=== PATIENT | female | born 1950 | race Caucasian/White ===

== ENCOUNTER 2025-02-22 18:50 | Emergency (ER) | payer MEDICARE, SELFPAY ==
--- OUTSIDE RECORDS SUMMARY | 2003-07-17 01:00 | XMS_ITS | Encounter Summary ---
Author Organization [facility] Address [address] [facility] [address] [place] [address] Phone Care Team Providers Care Blind Cleaner Name Role Phone Unavailable Primary Care Provider Unavailabl e Encounter Details Date Type Department Care Team (Late st Contact Info) Description 07/17/2003 Hospital Encounter [facility],Outside Imaging [address] [place], [place] [id number] System, Provider [place] In, [place] [address] Social History Tobacco Use Types Packs/Day Years Used Date Smoking Tobacco: Former Cigarettes 1 8 0 05/15/1980 - 05/15/1988 Smokeless Tobacco: Never Alcohol Use Standard Drinks/Week Comments Yes 0 (1 standard drink = 0.6 oz pure alcohol) Alcohol on holidays; otherwise, don't drink Child or Family Care Answer Date Record ed Do you have problems with on e of the following making it difficult for you to work, study, or receive health care? No 08/31/2020 Education Answer Date Recorded Are you interested in more education? Not on angela e 09/09/2022 Are you concerned about learning? Not on file 09/09/2022 No 09/09/2022 No 09/09/2022 Food Answer Date Recorded Within the past 6 months we worried whether our food would run out before we got money to buy more. Never True 02/12/2025 Within the past 6 months the food we bought just didn't last and we didn't have enough money to get more. Never True Residential Stability Answer Date Recor ded What is your housing situation today? I have nick barroso 02/12/2025 How many times have you move d in the past 12 months? Zero (I did not move) 02/12/2025 Paying for Meds Answer Date Recorded Do you have trouble paying for medicines? No 02/12/2025 Paying Utility Bills Answer Date Record ed Do you have trouble paying your heating or elect ricity bill? No 02/12/2025 Transportation Answer Date Recorded Has the lack of transportati on kept you from medical appointments or from getting medications? No 02/12/2025 Digital Access Answer Date Recorded No 02/12/2025 Yes 02/12/2025 Do you have reliable internet access at home? Ye s 02/12/2025 Do you have a device (e.g., phone, tablet, computer) with a working camera? Yes 02/12/2025 Intimate Partner Violence Answer Date R ecorded Are you denied basic needs s uch as food, clothing, or medical care? No 02/12/2025 In the past 12 months have y ou been in a relationship with a person who hurts, threatens, or tries to control you? No 02/12/2025 Are you denied basic needs s uch as food, clothing, or medical care? No 02/12/2025 In the past 12 months have y ou been in a relationship with a person who hurts, threatens, or tries to control you? No 02/12/2025 Comments No Sex and Gender Information Value Date Recorded Sex Assigned at Female 10/29/2017 1:31 PM EDT Legal Sex Female 10:04 PM EDT Gender Identity Female 10/29/2017 1:31 PM EDT Sexual Orientation Straight 10/09/2019 7: 46 AM EDT documented as of this encounter Functional Status * Calculated C-SSRS Risk Score (Lifetime/Recent) Answer Date of Assessment Author No Risk Indicated 02/12/2025 10:18 PM EDT Gigi Craven RN * [place] Suicide Severity Rating Scale (Screener/Recent Self-Report) Question Answer Date of Assessment Author 1. Wish to be (Past 1 Month) No 02/12/2025 10:18 PM DELFINT Gigi Sanchez RN 2. Non-Specific Active Suicidal Thoughts (Past 1 Month) No 02/12/2025 10:18 PM EDT Gigi Sanchez, LEONORA 6. Suicidal Behavior (Lifetime) No 02/12/2025 10:18 PM EDT Gigi Sanchez RN documented as of this encounter Plan of Treatment Upcoming Encounters Date Type Department Care Team (Late st Contact Info) Description 02/23/2025 Home Care Visit [facility] [address] [place] [address] Donya Matos RN [address] [place] [address] [email or web address] 03/03/2025 4:00 PM EDT Office Visit [facility] [address] [place] [address] Maya Frias MD [address] [facility], [address] [place] [address] [email or web address] documented as of this encounter Procedures Procedure Name Priority Date/Time Associated Diagnosis Comments BI MAMMOGRAM OUTSIDE (NO INTERPRETATION) Routine 07/17/2003 12:00 AM EST documented in this encounter Results * Mammogram Outside (No Interpretation) (07/17/2003 12:00 AM EST) Narrative SYSTEMGENERATED, DOCUMENTATION - 08/07/2018 1:35 PM EDT This study is for PACS storage only and not for interpretation. 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 It is not the complete legal health record.[facility]
--- OUTSIDE RECORDS SUMMARY | 2004-09-01 | XMS_ITS | Encounter Summary ---
Author Organization [facility] Address [address] [facility] [address] [place] [address] Phone Care Team Providers Care Auth Specialist Name Role Phone Unavailable Primary Care Provider Unavailabl e Encounter Details Date Type Department Care Team (Late st Contact Info) Description 09/01/2004 Hospital Encounter [facility],Outside Imaging [address] [place], [place] [phone] System, Provider [place] In, [place] [address] Social History Tobacco Use Types Packs/Day Years [...] 10:18 PM EDT Gigi Craven RN * [place] Suicide Severity Rating Scale (Screener/Recent Self-Report) Question [...] Visit [facility] [address] [place] [address] Donya Matos RN [address] [place] [address] [email or web address] 03/03/2025 4:00 PM EDT Office Visit [facility] [address] [place] [address] Maya Frias MD [address] [facility], [address] [place] [address] [email or web address] documented as of this encounter Procedures Procedure Name Priority Date/Time Associated Diagnosis Comments BI MAMMOGRAM OUTSIDE (NO INTERPRETATION) Routine 09/01/2004 12:00 AM EDT documented in this encounter Results * Mammogram Outside (No Interpretation) (09/01/2004 12:00 AM EDT) Narrative SYSTEMGENERATED, DOCUMENTATION - 08/07/2018 1:34 PM EDT This study is for PACS [...] It is not the complete legal health record.[facility]
--- OUTSIDE RECORDS SUMMARY | 2005-11-30 | XMS_ITS | Encounter Summary ---
Author Organization [facility] Address [address] [facility] [address] [place] [address] Phone Care Team Providers Care High [employer] Auto Repair Teacher Name Role Phone Unavailable Primary Care Provider Unavailabl e Encounter Details Date Type Department Care Team (Late st Contact Info) Description 11/30/2005 Hospital Encounter [facility],Outside Imaging [address] [place], [place] [phone] System, Provider [place] In, [place] [address] Social History Tobacco Use Types Packs/Day Years [...] 10:18 PM EDT Gigi Craven RN * [place] Suicide Severity Rating Scale (Screener/Recent Self-Report) Question [...] Visit [facility] [address] [place] [address] Donya Matos RN [address] [place] [address] [email or web address] 03/03/2025 4:00 PM EDT Office Visit [facility] [address] [place] [address] Maya Frias MD [address] [facility], [address] [place] [address] [email or web address] documented as of this encounter Procedures Procedure Name Priority Date/Time Associated Diagnosis Comments BI MAMMOGRAM OUTSIDE (NO INTERPRETATION) Routine 11/30/2005 12:00 AM EDT documented in this encounter Results * Mammogram Outside (No Interpretation) (11/30/2005 12:00 AM EDT) Narrative SYSTEMGENERATED, DOCUMENTATION - 08/07/2018 1:33 PM EDT This study is for PACS [...] It is not the complete legal health record.[facility]
--- OUTSIDE RECORDS SUMMARY | 2008-07-23 | XMS_ITS | Encounter Summary ---
Author Organization [facility] Address [address] [facility] [address] [place] [address] Phone Care Team Providers Care Poising Inspector Name Role Phone Unavailable Primary Care Provider Unavailabl e Encounter Details Date Type Department Care Team (Late st Contact Info) Description 07/23/2008 Hospital Encounter [facility],Outside Imaging [address] [place], [place] [phone] System, Provider [place] In, [place] [address] Social History Tobacco Use Types Packs/Day Years [...] 10:18 PM EDT Gigi Craven RN * [place] Suicide Severity Rating Scale (Screener/Recent Self-Report) Question [...] Visit [facility] [address] [place] [address] Donya Matos RN [address] [place] [address] [email or web address] 03/03/2025 4:00 PM EDT Office Visit [facility] Medical [facility] [address] [place] [address] Maya Frias MD [address] [facility], [address] [place] [address] [email or web address] documented as of this encounter Procedures Procedure Name Priority Date/Time Associated Diagnosis Comments BI MAMMOGRAM OUTSIDE (NO INTERPRETATION) Routine 07/23/2008 12:00 AM EDT documented in this encounter Results * Mammogram Outside (No Interpretation) (07/23/2008 12:00 AM EDT) Narrative SYSTEMGENERATED, DOCUMENTATION - 08/07/2018 1:32 PM EDT This study is for PACS [...] It is not the complete legal health record.[facility]
--- OUTSIDE RECORDS SUMMARY | 2010-08-12 | XMS_ITS | Encounter Summary ---
Author Organization [facility] Address [address] [facility] [facility] [address] [place] [address] Phone Care Team Providers Care Spooling Operator Name Role Phone Unavailable Primary Care Provider Unavailabl e Encounter Details Date Type Department Care Team (Late st Contact Info) Description 08/12/2010 Hospital Encounter [facility],Outside Imaging [address] [place], [place] [phone] System, Provider [place] In, [place] [address] Social History Tobacco Use Types Packs/Day Years [...] 10:18 PM EDT Gigi Craven RN * [place] Suicide Severity Rating Scale (Screener/Recent Self-Report) Question [...] Visit [facility] [address] [place] [address] Donya Matos RN [address] [place] [address] [email or web address] 03/03/2025 4:00 PM EDT Office Visit [facility] Medical [facility] [address] [place] [address] Maya Frias MD [address] [facility], [address] [place] [address] [email or web address] documented as of this encounter Procedures Procedure Name Priority Date/Time Associated Diagnosis Comments BI MAMMOGRAM OUTSIDE (NO INTERPRETATION) Routine 08/12/2010 12:00 AM EDT documented in this encounter Results * Mammogram Outside (No Interpretation) (08/12/2010 12:00 AM EDT) Narrative SYSTEMGENERATED, DOCUMENTATION - 08/07/2018 1:31 PM EDT This study is for PACS [...] It is not the complete legal health record.[facility]
--- NOTE | ~2025-02-22 | CT_ITS ---
CLINICAL HISTORY: fall with head strike CT cervical spine without contrast Comparison: None provided Findings: Straightening of the normal cervical lordosis. Multilevel degenerative endplate changes of the cervical spine. There is at least mild spinal stenosis at C5-6. No high-grade spinal stenosis. No acute fractures or dislocations. No acute findings on limited view of the intracranial contents. No cervical fluid collections or masses. Lung apices are clear. IMPRESSION: No acute traumatic abnormality in the cervical spine. This document has been electronically signed by: Bridget Mario MD on 02/22/2025 20:28:12
--- NOTE | ~2025-02-22 | CT_ITS ---
CLINICAL HISTORY: fall head strike CT head without contrast Comparison: None provided Findings: BRAIN: No acute infarct, hemorrhage, or mass effect. Scattered periventricular/deep white matter hypodensities, nonspecific, however may represent chronic microvascular ischemic disease. CSF SPACES: No hydrocephalus or effacement of basal cisterns. SKULL: No calvarial fracture. SINUSES: Moderate right and mild left maxillary sinus mucosal thickening. ORBITS: Limited views are unremarkable. OTHER: Negative. IMPRESSION: 1. No acute intracranial findings. This document has been electronically signed by: Bridget Mario MD on 02/22/2025 20:29:47
--- OUTSIDE RECORDS SUMMARY | 2025-02-22 09:30 | XMS_ITS | Encounter Summary ---
Author Organization [facility] Address [address] [facility] [address] [place] [address] Phone Care Team Providers Care Balance Staff Staker Name Role Phone Nicole Birch SOFTWARE PACKAGER Unavailable [phone] Mesha Drake MD Unavailable [phone] Tesfaye Putnam MD Unavailable [phone] Maya Frias MD Primary Care Provider [phone] Reason for Visit * Auth/Cert (Routine) Specialty Diagnoses / Procedures Referred By Contac t Referred To Contact Referral ID Status Reason Start Date Expiration Date Visits Re quested Visits Authorized [id number] 1 1 Encounter Details Date Type Department Care Team (Late st Contact Info) Description 02/22/2025 9:30 AM EDT Home Care Visit [facility] [address] [place] [address] Griffin Young, PT [address] [place] [address] PT OASIS START OF CARE (SOC) Social History Tobacco Use Types Packs/Day Years [...] your housing situation today? I have nick sing 02/12/2025 How many times have you move [...] AM EDT documented as of this encounter Last Filed Vital Signs Vital Sign Reading Time Taken Comments Blood Pressure 122/64 02/22/2025 10:31 AM EDT Pulse 88 02/22/2025 10:31 AM EDT Temperature 36.6 C (97.9 F) 02/22/2025 10:31 AM EDT Respiratory Rate 18 02/22/2025 10:31 AM EDT Oxygen Saturation 98% 02/22/2025 10:31 AM EDT Inhaled Oxygen Concentration - - Weight - - Height - - Body Mass Index - - documented in this encounter Plan of Treatment Upcoming Encounters Date Type Department Care Team (Late st Contact Info) Description 02/23/2025 Home Care Visit [facility] [address] [place] [address] Donya Matos, LEONORA [address] [place] [address] [email or web address] 03/03/2025 4:00 PM EDT Office Visit [facility] [address] [place] [address] Maya Frias MD [address] [facility], [address] [place] [address] [email or web address] documented as of this encounter Visit Diagnoses Not on filedocumented in this encounter Additional Health Concerns Infection Onset Date Last Indicated Resolved Time 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 02/13/2025 Assessment Noted Time PHQ-2 Depression Total Score: 0 09/02/19 25 8:43 PM EDT documented as of this encounter Home Health Visit - Care Plan Visit Details Visit Type -PT OASIS START O F CARE (SOC) Discipline -Physical Therapy Problems Problem Description Start Date Status Goals Interve ntions HH - Medication Management Disciplines: All Active Home Health Disciplines 02/22/2025 Active 1 goal linked to scheduled/document ed intervention 2 goal interventions scheduled/document ed in this visit HH - Focus of Care and Teaching Disciplines: All Active Home Health Disciplines w/RD 02/22/2025 Active 1 goal linked to scheduled/document ed intervention 1 goal intervention scheduled/document ed in this visit HH - Emergency Planning - Knowledge of Disciplines: All Active Home Health Disciplines 02/22/2025 Active 1 goal linked to scheduled/document ed intervention 2 goal interventions scheduled/document ed in this visit HH - Standard of Care Disciplines: All Active Home Health Disciplines 02/22/2025 Active 1 goal linked to scheduled/document ed intervention 2 goal interventions scheduled/document ed in this visit Goals Goal Associated Problem Outcome Goal Met? Visit Notes HH - Safe medication management, avoid unnecessary harm related to medication errors and/or interactions HH - Medication Management No HH - Communication and collaboration to achieve patient goals HH - Focus of Care and Teaching No HH - Knowledge of options for managing care in the event of an emergency related situation. HH - Emergency Planning - Knowledge of No HH - Achieve care management for a safe to home/community discharge from homecare HH - Standard of Care No Interventions Intervention Associated Problem/Goal Status Variance Visit Notes - I/E medication management: administration, purpose, dosages, preparation, setup, scheduling, side effects, food/drug interactions, and potential complications as indicated Description: Update patient's copy of medication list as needed. Problem: - Medication Management Goal: - Safe medication management, avoid unnecessary harm related to medication errors and/or interactions Scheduled - Complete medication review every visit and medication reconciliation as indicated. Pharmacy information: Problem: - Medication Management Goal: - Safe medication management, avoid unnecessary harm related to medication errors and/or interactions Scheduled - Focus of care, teaching completed and plan for next visit Problem: - Focus of Care and Teaching Goal: - Communication and collaboration to achieve patient goals Scheduled - I/E management of care in an urgent or emergency (ER) situation: When to call your Home Care Team/911, ER plans, supplies, evacuation, when to contact local ER officials and how to stay informed Problem: - Emergency Planning - Knowledge of Goal:HH - Knowledge of options for managing care in the event of an emergency related situation. Scheduled - Emergency planning assessment: the emergency plan, supplies needed, emergency contact numbers and an evacuation plan were reviewed Description: Patient is/are knowledgeable of emergency plans. Problem: - Emergency Planning - Knowledge of Goal:HH - Knowledge of options for managing care in the event of an emergency related situation. Scheduled - Assess vital signs, pulse oximetry, pain, and as indicated, orthostatic vital signs Problem:HH - Standard of Care Goal:HH - Achieve care management for a safe to home/community discharge from homecare Scheduled HH - Assess skin integrity Problem:HH - Standard of Care Goal:HH - Achieve care management for a safe to home/community discharge from homecare Scheduled documented in this encounter Care Teams Balance Staff Staker Relationship Specialty Start Date End Date Maya Frias MD [address] [facility], [address] [place] [address] [email or web address] PCP - General Family Medicine 05/03/21 Nicole Birch FNP [address] [facility], [address] [place] [address] Historical LMR Provider 03/01/17 Mesha Drake MD [address] [place] [address], [address] [place] [address] Historical LMR Provider 03/01/17 Tesfaye Putnam MD [address] [place] [address] [address] [place] [address] [email or web address] Historical LMR Provider 03/01/17 documented as of this encounter Additional Source Comments The information contained in this document represents components of the legal health record. It is not the complete legal health record.[facility]
[2025-02-22 18:54] VITALS: BP 138/72; BP 142/59; PULSE 64; PULSE 94; RESP 16; TEMP 36.8; O2SAT 99; BMI 29.4
--- NOTE | 2025-02-22 19:27 | PC.NURSE ---
[place] witnessed mechanical fall. PT arrived AOx4 GCS of 15 in a C-collar and EMS reported that pt tripped in the mall with no symptoms prior to fall, pt did have a +head strike, -LOC, +thinners (eliquis), and present with abrasion and mackenzie-orbital edema on right eye. PT is asymptomatic and denies any pain. +CMS in all extremities and +PERRLA. A-fib on tele pertinent PMH.
--- NOTE | 2025-02-22 19:40 | ED_ITS ---
HPI - General Adult General Chief complaint: Fall Stated complaint: Wit fall, +head strike, -loc,+thinners/c-collar Time Seen by Provider: 02/22/25 19:40 Source: patient and EMS Mode of arrival: EMS Limitations: no limitations History of Present Illness ED Provider: Meron Virk PA-C HPI narrative: Patient is a 74 year old assigned female at with a history of atrial fib on eliquis presenting to the emergency department today after a mechanical fall. Patient states that she tripped on the escalator and hit her head on the ground. Patient denies any loss of consciousness with the incident. Patient denies any other complaints at this time. Related Data Allergies Allergy/AdvReac Type Severity Reaction Status Date / Time No Known Allergies Allergy Verified 02/22/25 19:08 Review of Systems 2 Constitutional: Constitutional: Reports as per HPI Eyes: Eyes: Reports as per HPI ENT: Reports as per HPI Cardiovascular: Cardiovascular: Reports as per HPI Respiratory: Respiratory: Reports as per HPI Gastrointestinal: Gastrointestinal: Reports as per HPI Genitourinary: Genitourinary: Reports as per HPI Musculoskeletal: Musculoskeletal: Reports as per HPI Integumentary/Breasts: Skin/Breast: Reports as per HPI Neurologic: Reports as per HPI Psychiatric: Psychiatric: Reports as per HPI Endocrine: Endocrine: Reports as per HPI Hematologic/Lymphatic: Hematologic/Lymphatic: Reports as per HPI Allergic/Immunologic: Allergic/Immunologic: Reports as per HPI PMFSH Past Medical History Attestation statement: The following information was validated with the patient. Source: old records reviewed and nursing notes reviewed Social History Social History Alcohol intake: current Alcohol intake frequency: holidays/special occasions only Alcohol type: wine Smoked in Last 30 Days: No Use of substances other than those prescribed or required for medical reasons: No Any prior treatment program specific to substance use: No Advance Directives: No Advance Directives Information Provided: Yes Physical Exam ED Vital Signs: Vital Signs - 24 hr 02/22/25 18:54 02/22/25 20:04 02/22/25 21:44 Temperature 98.2 F 97.5 F 97.5 F Pulse Rate 94 91 91 Respiratory Rate 16 12 12 Blood Pressure 142/59 H 146/58 H 146/58 H Pulse Oximetry 99 98 98 Oxygen Delivery Method Room Air Room Air Room Air BMI result Body Mass Index 29.4 Const General: cooperative, no acute distress, alert and awake Nutritional Appearance: well nourished Orientation/consciousness: patient oriented x3 HENMT Other: Ears: hearing grossly normal bilaterally and external ears normal General nose exam: Normal external nose present, no nasal discharge noted and no epistaxis Mouth: Normal oral and palatal mucosa present, no drooling and no muffled voice Eyes General: appearance normal, both eyes and all related structures Periorbital: periorbital findings normal Eyelids: Yes eyelids normal Conjunctivae: conjunctivae normal Pupils: Equal, round and reactive pupils present EOM: EOMs intact bilaterally Neck Neck: Yes normal visual inspection and Yes full ROM Resp Effort & Inspection: normal respiratory effort and able to speak in complete sentences Neuro General: patient oriented x3, moves all extremities and CN's II-XI intact bilaterally Cranial nerves: Yes Equal, round and reactive pupils present Cognition (Neuro): normal cognition Extrem General: Yes normal to inspection, Yes full ROM and Yes capillary refill normal Psych Appearance: grossly normal Mental Status: mental status grossly normal Affect: normal affect Attitude: cooperative Thought process: Normal thought process present Thought content: Normal thought content present Insight: Good insight present (Psych) Medications Administered Discontinued Medications Generic Name Dose Route Start Last Admin Trade Name Freq PRN Reason Stop Dose Admin Diphtheria/Tetanus/Acell Pertussis 0.5 ml 02/22/25 21:16 02/22/25 21:29 Diphth,Pertus(Acell),Tet Adult 0.5 Ml Syringe IM 02/22/25 21:17 0.5 ml .ONCE ONE Administration Lidocaine HCl 5 ml 02/22/25 20:33 02/22/25 20:51 Lidocaine Hcl 1 % Mpf 5 Ml Vial SUBCUT 02/22/25 20:34 5 ml ONCE ONE Administration Procedures Laceration R forehead: Site: face Side (If applicable): right Size (cm): 1.5 Description: irregular Depth: simple, single layer Local Anesthetic: lidocaine 1% Amount of anesthesia used (mL): 5 Pre-repair: wound explored, irrigated extensively and deep structures intact Skin layer closed with: other (prolene) Size (cm): 6-0 Number of sutures: 3 Technique: simple, interrupted Medical Decision Making Medical Decision Making MDM Narrative: Patient is a 74 year old assigned female at with a history of atrial fib on eliquis presenting to the emergency department today after a mechanical fall. Patient's physical exam was as noted in the physical exam portion of this note. Patient's CT head and c-spine showed no acute process. I explained my physical exam findings as well as all test results to the patient. I answered all questions asked by the patient. Patient was brought up to date on her tetanus status. Patient's laceration was repaired, per procedure note, without incident. I stressed the importance of the patient taking her medication as directed (either prescribed or as the over the counter packaging recommends). I stressed the importance of the patient following up with her primary care provider. I stressed the importance of the patient returning to the emergency department immediately if her symptoms were to worsen or if she were to develop any dizziness, shortness of breath, difficulty breathing, chest pain, blurry vision, loss of vision, nausea, vomiting, abdominal pain, fever, chills, back pain, or any other complaints. Patient verbalized agreement and understanding with this treatment plan and discharge. Differential Diagnosis Differential Diagnoses: The differential diagnosis associated with the presentation includes Laceration Mechanical fall Admission/Observation Consideration of admission/observation: Escalation of care including admission/observation considered Patient would have been admitted to the hospital had her work up had any findings where hospital admission was appropriate and her clinical presentation warranted hospital admission. Independent Interpretation I performed an independent interpretation of an: CT Scan Interpretation: My interpretation is in agreement with the radiologist's impression of these imaging studies. L Report Number: [id number] Reason for Exam: fall head strike CLINICAL HISTORY: fall head strike CT head without contrast Comparison: None provided Findings: BRAIN: No acute infarct, hemorrhage, or mass effect. Scattered periventricular/deep white matter hypodensities, nonspecific, however may represent chronic microvascular ischemic disease. CSF SPACES: No hydrocephalus or effacement of basal cisterns. SKULL: No calvarial fracture. SINUSES: Moderate right and mild left maxillary sinus mucosal thickening. ORBITS: Limited views are unremarkable. OTHER: Negative. IMPRESSION: 1. No acute intracranial findings. This document has been electronically signed by: Bridget Mario MD on 02/22/2025 20:29:47 Dictated By: Bridget Mario MD Signed By: Electronically signed by Bridget Mario MD 02/22/252029 Report Number: [id number]: Reason for Exam: fall with head strike CLINICAL HISTORY: fall with head strike CT cervical spine without contrast Comparison: None provided Findings: Straightening of the normal cervical lordosis. Multilevel degenerative endplate changes of the cervical spine. There is at least mild spinal stenosis at C5-6. No high-grade spinal stenosis. No acute fractures or dislocations. No acute findings on limited view of the intracranial contents. No cervical fluid collections or masses. Lung apices are clear. IMPRESSION: No acute traumatic abnormality in the cervical spine. This document has been electronically signed by: Bridget Mario MD on 02/22/2025 20:28:12 Dictated By: Bridget Mario MD Signed By: Electronically signed by Bridget Mario MD 02/22/252028 Radiology Impression Discussion of test interpretation with radiology: I have reviewed the radiologist's reading. Independent Historian Clinical information obtained from an independent historian. History obtained from or confirmed by: EMS (EMS provided additional history and confirmed the history provided by the patient. ) Discharge Plan Discharge Clinical Impression: Fall Qualifiers: Encounter type: initial encounter Qualified Code(s): W19.XXXA - Unspecified fall, initial encounter Forehead laceration Qualifiers: Encounter type: initial encounter Qualified Code(s): S01.81XA - Laceration without foreign body of other part of head, initial encounter Patient Disposition: Home, Self-Care Instructions: Care For Your Stitches (DC), Laceration (DC), Fall Prevention for Older Adults (ED) Additional Instructions: Have your (3) sutures removed in 7-10 days. Do NOT soak the affected area. Do NOT go in any public bodies of water including but not limited to pools, arenas, lakes, oceans, etc. AFTER you have your sutures removed and the scab falls away - apply sunscreen to the area every day for 1 entire YEAR to mitigate scarring. IF you are prescribed home medications and/or you are taking over the counter medications at home - it is very important you continue to do so as prescribed / directed unless told otherwise. Follow up with your primary care provider. Return to the emergency department immediately if your symptoms worsen or if you develop any numbness, tingling, dizziness, shortness of breath, difficulty breathing, chest pain, blurry vision, loss of vision, nausea, vomiting, abdominal pain, fever, chills, back pain, or any other complaints. Please see the information below about our Patient Portal. If you are not yet enrolled in the [facility] Patient Portal, you will receive an enrollment email invitation following your visit to any [facility] setting. You may also self-enroll in the Patient Portal by visiting our website: [email or web address] The following information is required to access the Patient Portal: - Your [facility] Medical Record Number - Your personal home email address (must match what is in your electronic medical record, Registration staff can assist with this) - Name - Date of Capabilities of the Patient Portal: - Message some providers - View upcoming appointments - Access your health summary, medical history, and visit history - View current conditions and allergies - View procedure and lab results - View your medications, including guidelines, side effects, and precautions - Complete pre-appointment questionnaires requested by your provider - Ready summary reports of your office visits and procedures To access the Patient Portal Mobile Bella, follow these directions: - Search [employer]Apart in the Bella Store or [employer] You Store - Download the Bella - Search for [facility] - Enter your login/password Referrals: Kenna Craig MD [Primary Care Provider, Internal Medicine] Interventions: ED Discharge Assessment Last Done: 02/22/25 21:44 Print Language: Kenyan
--- OUTSIDE RECORDS SUMMARY | 2025-02-22 19:54 | XMS_ITS | Encounter Summary ---
Author Organization [facility] Address [address] [place] [address] [address] [place] [address] Phone Care Team Providers Care Turbo Operator Name Role Phone Nicole Birch CASINO ACCOUNTANT Unavailable Mesha Drake MD Unavailable [phone] Tesfaye Putnam MD Unavailable [phone] Maya Frias MD Primary Care Provider Mila Quintana OT Unavailable [phone] Reason for Visit * Reason Onset Date Comments TCM Visit 12/26/2024 Encounter Details Date Type Department Care Team ([facility] st Contact Info) Description 12/26/2024 Telephone [facility] [address] [place] [address] Maya Frias MD 234 [facility] [address] [place] [address] [email or web address] TCM Visit Social History Tobacco Use Types Packs/Day Years [...] got money to buy more. Never True 09/15/2024 Within the past 6 months the food we bought just didn't last and we didn't have enough money to get more. Never True Residential Stability Answer Date Recor ded What is your housing situation today? I have nick sing 09/15/2024 How many times have you move d in the past 12 months? Zero (I did not move) 09/15/2024 Paying for Meds Answer Date Recorded Do you have trouble paying for medicines? No 09/15/2024 Paying Utility Bills Answer Date Record ed Do you have trouble paying your heating or elect ricity bill? No 09/15/2024 Transportation Answer Date Recorded Has the lack of transportati on kept you from medical appointments or from getting medications? No 09/15/2024 Digital Access Answer Date Recorded No 09/15/2024 Yes 09/15/2024 Do you have reliable internet access at home? Ye s 09/15/2024 Do you have a device (e.g., phone, tablet, computer) with a working camera? Yes 09/15/2024 Intimate Partner Violence Answer Date R ecorded Are you denied basic needs s uch as food, clothing, or medical care? No 09/15/2024 In the past 12 months have y ou been in a relationship with a person who hurts, threatens, or tries to control you? No 09/15/2024 Are you denied basic needs s uch as food, clothing, or medical care? No 09/15/2024 In the past 12 months have y ou been in a relationship with a person who hurts, threatens, or tries to control you? No 09/15/2024 Comments No Sex and Gender Information Value Date Recorded Sex Assigned at Female 10/29/2017 1:31 PM EDT Legal Sex Female 10:04 PM EDT Gender Identity Female 10/29/2017 1:31 PM EDT Sexual Orientation Straight 10/09/2019 7: 46 AM EDT documented as of this encounter Progress Notes * Mars Rodrigez RN - 12/31/2024 1:01 PM EDT Outside of TCM window, appt booked for 01/[address] Hull for follow up, unable to come for sooner opening with office. fyi to pcp * Lisseth Lopez - 12/30/2024 12:11 PM EDT Patient called in returning call, please contact and advise. Central Support Survey Worker (Please do not reply to this user; this inbox is not monitored.) Thank you. * Vale Horton RN - 12/26/2024 11:07 AM EDT LVM to have patient call office. * Oneida Isabel - 12/26/2024 10:02 AM EDT Transitional Care Management New Patient: YES/NO: no Hospitalization Name: [facility] Discharge Date: 12/16/24 Reason for Visit+ Diagnosis: A-Fib Is the discharge summary in patient chart:YES/NO: yes If not did you inform the patient/patient advocate to fax it to the office: Please inform the patient/patient advocate to fax and bring a copy to the appt. Appointment Date: not scheduled Is the appt: Awareness: Appt need to be schedule with in 2 to 14 calendar days from discharge date Additional Note (if applicable): No available appts with PCP within 14 days of discharge. Call center unable to schedule. [facility] Call Center CSS Agent (Please do not reply to this user, as this inbox is not monitored. Thank you.) Thank you. documented in this encounter Plan of Treatment Upcoming Encounters Date Type Department Care Team (Late st Contact Info) Description 02/23/2025 Home Care Visit [facility] [address] [place] [address] Donya Matos, LEONORA [address] [place] [address] 03/03/2025 4:00 PM EDT Office Visit [facility] Medicine [address] [place] [address] Maya Frias MD [address] [place] [address] documented as of this encounter Visit Diagnoses Not on filedocumented in this encounter Additional Health Concerns Infection Onset Date Last Indicated Resolved Time CoV-Risk Comment:Per note documentation 02/12/2025 02/12/2025 2:26 PM EDT 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 02/13/2025 Assessment Noted Time PHQ-2 Depression Total Score: 0 09/02/19 25 8:43 PM EDT documented as of this encounter Care Teams Turbo Operator Relationship Specialty Start Date End Date Maya Frias MD [address] [place] [address] PCP - General Family Medicine 05/03/21 Nicole Birch FNP [address] [address] Historical LMR Provider 03/01/17 Mesha Drake MD 22 [facility], 1st [place] [address] Historical LMR Provider 03/01/17 Tesfaye Putnam MD [address] [place] [address] [address] [place] [address] [email or web address] Historical LMR Provider 03/01/17 Mila Quintana, OT [address] [place] [address] [email or web address] Transitions Firebrick LayerUser Interface Developer Therapy 02/03/25 documented as of this encounter Additional Source Comments The information contained in this document represents components of the legal health record. It is not the complete legal health record.[facility]
--- OUTSIDE RECORDS SUMMARY | 2025-02-22 19:54 | XMS_ITS | Encounter Summary ---
Author Organization [facility] Address [address] [place] [address] Phone Care Team Providers Care Geothermal Sheet Metal Worker Name Role Phone Nicole Birch CLIENT ENGAGEMENT SPECIALIST Unavailable [phone] Mesha Drake MD Unavailable [phone] Tesfaye Putnam MD Unavailable [phone] Maya Frias MD Primary Care Provider [phone] Mila Quintana OT Unavailable [phone] Encounter Details Date Type Department Care Team (Late st Contact Info) Description 11/25/2021 Procedure Pass [facility], [facility] [address] [place] [address] Social History Tobacco Use Types Packs/Day Years [...] Answer Date Recorded Are you interested in help w ith more adult education (for example, completing high school, GED, job training, learning the Mohawk language, technical skills, or developing parenting skills)? No 08/31/2020 Are you concerned about learning? Not on file 08/31/2020 Not on file 08/31/2020 Not on file 08/31/2020 Food Answer Date Recorded Within the past 6 months we worried whether our food would run out before we got money to buy more. Never True 08/31/2020 Within the past 6 months the food we bought just didn't last and we didn't have enough money to get more. Never True Paying for Meds Answer Date Recorded Do you have trouble paying for medicines? No 08/31/2020 Paying Utility Bills Answer Date Record ed Do you have trouble paying your heating or elect ricity bill? No 08/31/2020 Transportation Answer Date Recorded Has the lack of transportati on kept you from medical appointments or from getting medications? No 08/31/2020 Comments No Sex and Gender Information Value Date Recorded Sex Assigned at Female 10/29/2017 1:31 PM EDT Legal Sex Female 10:04 PM EDT Gender Identity Female 10/29/2017 1:31 PM EDT Sexual Orientation Straight 10/09/2019 7: 46 AM EDT documented as of this encounter Plan of Treatment Upcoming Encounters Date Type Department Care Team (Late st Contact Info) Description 02/23/2025 Home Care Visit [facility] [address] [place], [place] [phone] Donya Matos, LEONORA [address] [place] [address] [email or web address] 03/03/2025 4:00 PM EDT Office Visit [facility] Medicine [address] [place] [address] Maya Frias MD 234 [facility], [address] [place] [address] documented as of this encounter Visit Diagnoses Not on filedocumented in this encounter Additional Health Concerns Infection Onset Date Last Indicated Resolved Time CoV-Risk Comment:Per note documentation 02/12/2025 02/12/2025 2:26 PM EDT 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 02/13/2025 Assessment Noted Time PHQ-2 Depression Total Score: 0 05/02/20 8:35 PM EST documented as of this encounter Care Teams Geothermal Sheet Metal Worker Relationship Specialty Start Date End Date Maya Frias MD 234 [facility], [facility] [address] [place] [address] PCP - General Family Medicine 05/03/21 Nicole Birch FNP [address] [place] [address] [address] [place] [address] Historical LMR Provider 03/01/17 Mesha Drake MD [address] [place] [address], [address] [place] [address] Historical LMR Provider 03/01/17 Tesfaye Putnam MD [address] [place] [address] [address] [place] [address] [email or web address] Historical LMR Provider 03/01/17 Mila Quintana, OT [address] [place] [address] [email or web address] Transitions Precinct Commanding OfficerWrong Address Clerk Therapy 02/03/25 documented as of this encounter Additional Source Comments The information contained in this document represents components of the legal health record. It is not the complete legal health record.[facility]
--- OUTSIDE RECORDS SUMMARY | 2025-02-22 19:54 | XMS_ITS | Encounter Summary ---
Author Organization [facility] Address [address] [facility] [address] [place] [address] Phone Care Team Providers Care Brick Setter Name Role Phone Nicole Birch OIL REFINER Unavailable [phone] Mesha Drake MD Unavailable [phone] Tesfaye Putnam MD Unavailable [phone] Maya Frias MD Primary Care Provider Mila Quintana OT Unavailable [phone] Encounter Details Date Type Department Care Team (Late st Contact Info) Description 09/15/2024 Procedure Pass [facility], Ct Scan - [address] [address] Social History Tobacco Use Types Packs/Day Years [...] housing situation today? I have nick barroso 09/15/2024 How many times have you move [...] Date of Assessment Author No Risk Indicated 09/15/2024 7:55 PM EDT Saima Curiel RN * [place] Suicide Severity Rating Scale (Screener/Recent Self-Report) Question Answer Date of Assessment Author 1. Wish to be (Past 1 Month) No 025 7:55 PM EDT Saima Curiel RN 2. Non-Specific Active Suici donita Thoughts (Past 1 Month) No 09/15/2024 7:55 PM EDT Saima Curiel RN 6. Suicidal Behavior (Lifetime) No 7:55 PM EDT Saima Curiel RN documented as of this encounter Plan of Treatment Upcoming Encounters Date Type Department Care Team (Late st Contact Info) Description 02/23/2025 Home Care Visit [facility] [address] [place] [address] Donya Matos RN [address] [place] [address] [email or web address] 03/03/2025 4:00 PM EDT Office Visit [facility] Medicine [address] [place] [address] Maya Frias MD [address] [place] [address] [email or web address] documented as of this encounter Visit Diagnoses Not on filedocumented in this encounter Additional Health Concerns Infection Onset Date Last Indicated Resolved Time CoV-Risk Comment:Per note documentation 02/12/2025 02/12/2025 2:26 PM EDT 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 02/13/2025 Assessment Noted Time PHQ-2 Depression Total Score: 0 09/02/19 25 8:43 PM EDT documented as of this encounter Care Teams Brick Setter Relationship Specialty Start Date End Date Maya Frias MD [address] [place] [address] [email or web address] PCP - General Family Medicine 05/03/21 Nicole Birch FNP [address] [place] [address] [email or web address] Historical LMR Provider 03/01/17 Mesha Drake MD 22 [facility], [address] [place] [address] [email or web address] Historical LMR Provider 03/01/17 Tesfaye Putnam MD [address] [place], [place] [address] [place] [phone] [email or web address] Historical LMR Provider 03/01/17 Mila Quintana, OT [address] [place] [address] [email or web address] Transitions Telephone WorkerCommunication Technician Therapy 02/03/25 documented as of this encounter Additional Source Comments The information contained in this document represents components of the legal health record. It is not the complete legal health record.[facility]
--- OUTSIDE RECORDS SUMMARY | 2025-02-22 19:54 | XMS_ITS | Encounter Summary ---
Author Organization [facility] Address [address] [place] [address] Phone Care Team Providers Care Vat Overhauler Name Role Phone Nicole Birch PILOT CAN ROUTER Unavailable [phone] Mesha Drake MD Unavailable [phone] Tesfaye Putnam MD Unavailable [phone] Maya Frias MD Primary Care Provider Mila Quintana OT Unavailable [phone] Encounter Details Date Type Department Care Team (Late st Contact Info) Description 09/15/2024 Procedure Pass [facility], Ct Scan - [address] [address] Social History Tobacco Use Types Packs/Day Years [...] 7:55 PM EDT Saima Curiel RN * [place] Suicide Severity Rating Scale (Screener/Recent Self-Report) Question [...] Info) Description 02/23/2025 Home Care Visit [facility] [address] [place] [address] Donya Matos RN [address] [place] [address] 03/03/2025 4:00 PM EDT Office Visit [facility] Medicine [address] [place] [address] Maya Frias MD [address] [place] [address] documented as of this encounter Visit Diagnoses Not on filedocumented in this encounter Additional Health Concerns Infection Onset Date Last Indicated Resolved Time CoV-Risk Comment:Per note documentation 02/12/2025 02/12/2025 2:26 PM EDT 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 02/13/2025 Assessment Noted Time PHQ-2 Depression Total Score: 0 09/02/19 25 8:43 PM EDT documented as of this encounter Care Teams Vat Overhauler Relationship Specialty Start Date End Date Maya Frias MD [address] [place] [address] PCP - General Family Medicine 05/03/21 Nicole Birch FNP [address] [place] [address] [email or web address] Historical LMR Provider 03/01/17 Mesha Drake MD 22 [facility], [address] [place] [address] [email or web address] Historical LMR Provider 03/01/17 Tesfaye Putnam MD [address] [place] [address] [place], [place] [address] [place] [phone] [email or web address] Historical LMR Provider 03/01/17 Mila Quintana, OT [address] [place] [address] [email or web address] Transitions Gas Load DispatcherEngraver [employer] 02/03/25 documented as of this encounter Additional Source Comments The information contained in this document represents components of the legal health record. It is not the complete legal health record.[facility]
--- OUTSIDE RECORDS SUMMARY | 2025-02-22 19:54 | XMS_ITS | Encounter Summary ---
Author Organization [facility] Address [address] [facility] [address] [place] [address] Phone Care Team Providers Care Merchandise Displayer Name Role Phone Nicole Birch MAINTENANCE SERVICE TECHNICIAN Unavailable Mesha Drake MD Unavailable [phone] Tesfaye Putnam MD Unavailable Maya Frias MD Primary Care Provider Encounter Details Date Type Department Care Team (Late st Contact Info) Description 02/12/2025 Telephone [facility] [address] [place] [address] Yann Morris, DO [address] [facility] [address] [place] [address] [email or web address] Social History Tobacco Use Types Packs/Day Years [...] 10:18 PM EDT Gigi Craven RN * [place] Suicide Severity Rating Scale (Screener/Recent Self-Report) Question Answer Date of Assessment Author 1. Wish to be (Past 1 Month) No 02/12/2025 10:18 PM EDT Gigi Sanchez, LEONORA 2. Non-Specific Active Suicidal Thoughts (Past 1 Month) No 02/12/2025 10:18 PM EDT Gigi Sanchez RN 6. Suicidal Behavior (Lifetime) No 02/12/2025 10:18 PM EDT Gigi Sanchez RN documented as of this encounter Progress Notes * Joy Parham LPN - 02/12/2025 10:41 AM EDT Yann Morris DO17 hours ago (4:58 PM) [facility] Please check to see if Patient has cardiology referral from recent hospitalization? Did the VNA orders I placed go through? Generally a check in on her is needed as I feel she is frail. She has an appt w/ Cardiology Monday02/14/25 and she will stop the Metformin. Called [facility] and spoke with Miryam, they have attempted to call her x 2 no voice mail. She will have clinical reach out toher now to schedule intake. If they are unable to reach VNA will contact [facility]. * Yann Morris DO - 02/12/2025 8:11 AM EDT [facility] Nursing Team, Vida kidney function continues to be low. In addition to recommendations from other phone note sheneeds to stop her Metformin. I have significant concern for her and would really appreciate if she can be a priority this am. Clarisa, John Paul documented in this encounter Plan of Treatment Upcoming Encounters Date Type Department Care Team (Late st Contact Info) Description 02/23/2025 Home Care Visit [facility] [address] [place] [address] Donya Matos, LEONORA [address] [place] [address] 03/03/2025 4:00 PM EDT Office Visit [facility] [address] [place] [address] Maya Frias MD 234 [facility] [address] [place] [address] [email or web address] documented as of this encounter Visit Diagnoses Not on filedocumented in this encounter Additional Health Concerns Infection Onset Date Last Indicated Resolved Time CoV-Risk Comment:Per note documentation 02/12/2025 02/12/2025 2:26 PM EDT 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 02/13/2025 Assessment Noted Time PHQ-2 Depression Total Score: 0 09/02/19 25 8:43 PM EDT documented as of this encounter Care Teams Merchandise Displayer Relationship Specialty Start Date End Date Maya Frias MD [address] [facility] 7 [place] [address] [email or web address] PCP - General Family Medicine 05/03/21 Nicole Birch FNP [address] [facility] 7 [place] [address] [email or web address] Historical LMR Provider 03/01/17 Mesha Drake MD [address] [facility], 1[address] [place] [address] [email or web address] Historical LMR Provider 03/01/17 Tesfaye Putnam MD [address] [place] [address] [address] [place] [address] (work) [email or web address] Historical LMR Provider 03/01/17 documented as of this encounter Additional Source Comments The information contained in this document represents components of the legal health record. It is not the complete legal health record.[facility]
--- OUTSIDE RECORDS SUMMARY | 2025-02-22 19:55 | XMS_ITS | Encounter Summary ---
Author Organization [facility] Address [address] [facility] [address] [place] [address] Phone Care Team Providers Care Erector Operator Name Role Phone Nicole Birch ONCOLOGY NURSE Unavailable [phone] Mesha Drake MD Unavailable [phone] Tesfaye Putnam MD Unavailable [phone] Maya Frias MD Primary Care Provider [phone] Reason for Visit * Auth/Cert (Routine) Specialty Diagnoses / Procedures Referred By Contac t Referred To Contact Referral ID Status Reason Start Date Expiration Date Visits Re quested Visits Authorized [id number] 1 1 Encounter Details Date Type Department Care Team (Late st Contact Info) Description 02/22/2025 Home Care Visit [facility] [address] [place] [address] Kenna Islas, LEONORA [address] [place] [address] [email or web address] CASE COMMUNICATION Social History Tobacco Use Types Packs/Day Years [...] Visit [facility] [address] [place] [address] Donya Matos, LEONORA [address] [place] [address] 03/03/2025 4:00 PM EDT Office Visit [facility] Medicine [address] [place] [address] Maya Frias MD 234 [facility] 7 [place] [address] [email or web address] documented as of this encounter Visit Diagnoses Not on filedocumented in this encounter Additional Health Concerns Infection Onset Date Last Indicated Resolved Time 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 02/13/2025 Assessment Noted Time PHQ-2 Depression Total Score: 0 09/02/19 25 8:43 PM EDT documented as of this encounter Care Teams Erector Operator Relationship Specialty Start Date End Date Maya Frias MD [address] [place] [address] [address] [place] [address] PCP - General Family Medicine 05/03/21 Nicole Birch FNP [address] [facility] 7 [place] [address] Historical LMR Provider 03/01/17 Mesha Drake MD 22 [facility], 1st [place] [address] Historical LMR Provider 03/01/17 Tesfaye Putnam MD [address] [place], [place] [address] [place] [address] [email or web address] Historical LMR Provider 03/01/17 documented as of this encounter Additional Source Comments The information contained in this document represents components of the legal health record. It is not the complete legal health record.[facility]
--- OUTSIDE RECORDS SUMMARY | 2025-02-22 19:55 | XMS_ITS | Encounter Summary ---
Author Organization [facility] Address [address] [facility] [address] [place] [address] Phone Care Team Providers Care Manager Environmental Health Name Role Phone Nicole Birch TRADESHOW WORKER Unavailable Mesha Drake MD Unavailable [phone] Tesfaye Putnam MD Unavailable [phone] Maya Frias MD Primary Care Provider Encounter Details Date Type Department Care Team (Late st Contact Info) Description 02/20/2025 Refill [facility] Medicine [address] [place] [address] Maya Frias MD [address] [facility] [place] [address] [email or web address] Social History Tobacco Use Types Packs/Day Years [...] as of this encounter Progress Notes * Vale Horton RN - 02/20/2025 9:47 AM EDT Spoke to patient, med rec and post discharge from completed. States she needs refills for antus insulin pen, pen needles, and potassium chloride. Meds pended. Post Discharge Call Post discharge call documentation: Is a post discharge call required?: Yes Please indicate post discharge status: Patient reached - post discharge complete Patient eligible for TCM billing (reached or two unsuccessful attempts within two business days post discharge)?: Yes General: Discharge information: Admit date: 02/12/25 Discharge date: 02/16/25 Discharge from: [facility] Reason for hospitalization: Afib Discharge disposition: better, still gets tired How is the patient feeling since discharge (pain level and other considerations)?: Stable/no change Safety and self care: Does the patient/caregiver have any safety concerns (falls, transfers, stairs, abuse, etc.)?: Yes Is the patient/caregiver able to take care of post discharge needs at home (wound care, medication(s), etc)?: Yes Assistive devices/equipment and home services: Was the patient sent home with any assistive devicesor equipment?: Yes Select all that apply: Walker Was the patient sent home with home services?: Yes Select all that apply: PT Has the patient/caregiver been contacted by home services?: Yes Medication review: Were you able to review the medication list with the patient/caregiver?: Yes Were there any medication changes while the patient was in the hospital (such as anticoagulant dosechanges, insulin, etc)?: Yes What changes?: see med list Were there any discrepancies during medication review?: No Was the patient/caregiver able to shredder picker all new prescriptions?: Yes Does the patient need any other medications renewed/refilled?: Yes Comments: lantus, insulin pen, potassium chloride Does the patient/caregiver have questions regarding their medications or side effects?: No Follow up/conclusion: Was a follow up appointment scheduled with the patient's PCP office?: Yes Date of next appointment with the PCP: 03/03/25 Summary (include items to be addressed in follow up visit): Advise patient to call PCP office if symptoms worsen or do not improve as anticipated * Joy Qureshi - 02/20/2025 8:16 AM EDT Pt LM with Call Ctr 02/19/25 at 9:01 pm Rec'd at M 8:07 am 02/20/25 At [facility] for Afib No other info given Please call to assess need for appt Please schedule accordingly documented in this encounter Plan of Treatment Upcoming Encounters Date Type Department Care Team (Late st Contact Info) Description 02/23/2025 Home Care Visit [facility] [address] [place] [address] Donya Matos, LEONORA [address] [place] [address] 03/03/2025 4:00 PM EDT Office Visit [address] [address] Maya Frias MD [address] [place] [address] documented as of this encounter Visit Diagnoses Not on filedocumented in this encounter Additional Health Concerns Infection Onset Date Last Indicated Resolved Time 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 02/13/2025 Assessment Noted Time PHQ-2 Depression Total Score: 0 09/02/19 25 8:43 PM EDT documented as of this encounter Care Teams Manager Environmental Health Relationship Specialty Start Date End Date Maya Frias MD [address] [place] [address] PCP - General Family Medicine 05/03/21 Nicole Birch FNP [address] [place] [address] Historical LMR Provider 03/01/17 Mesha Drake MD 22 [facility], 1st [place] [address] [email or web address] Historical LMR Provider 03/01/17 Tesfaye Putnam MD [address] [place], [place] [address] [place] [address] [email or web address] Historical LMR Provider 03/01/17 documented as of this encounter Additional Source Comments The information contained in this document represents components of the legal health record. It is not the complete legal health record.[facility]
--- OUTSIDE RECORDS SUMMARY | 2025-02-22 19:55 | XMS_ITS | Encounter Summary ---
Author Organization [facility] Address [address] [facility] [address] [place] [address] Phone Care Team Providers Care Scale And Skip Car Operator Name Role Phone Nicole Birch HAT BLOCK BENCH HAND Unavailable [phone] Mesha Drake MD Unavailable [phone] Tesfaye Putnam MD Unavailable [phone] Maya Frias MD Primary Care Provider [phone] Encounter Details Date Type Department Care Team (Late st Contact Info) Description 02/13/2025 Procedure Pass [facility], Ct Scan - [facility] 30 [place] [address] Social History Tobacco Use Types Packs/Day Years [...] Info) Description 02/23/2025 Home Care Visit [facility] [address] [place] [address] Donya Matos RN [address] [place] [address] 03/03/2025 4:00 PM EDT Office Visit [address] [address] Maya Frias MD [address] [place] [address] 7 [place] [address] [email or web address] documented as of this encounter Visit Diagnoses Not on filedocumented in this encounter Additional Health Concerns Infection Onset Date Last Indicated Resolved Time CoV-Risk Comment:Per note documentation 02/12/2025 02/12/2025 2:26 PM EDT 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 02/13/2025 Assessment Noted Time PHQ-2 Depression Total Score: 0 09/02/19 25 8:43 PM EDT documented as of this encounter Care Teams Scale And Skip Car Operator Relationship Specialty Start Date End Date Maya Frias MD [address] [place] [address] [email or web address] PCP - General Family Medicine 05/03/21 Nicole Birch FNP [address] [place] [address] [email or web address] Historical LMR Provider 03/01/17 Mesha Drake MD [address] [place] [address], 1[address] [place] [address] [email or web address] Historical LMR Provider 03/01/17 Tesfaye Putnam MD [address] [place], [place] [address] [place] [address] [email or web address] Historical LMR Provider 03/01/17 documented as of this encounter Additional Source Comments The information contained in this document represents components of the legal health record. It is not the complete legal health record.[facility]
--- OUTSIDE RECORDS SUMMARY | 2025-02-22 19:55 | XMS_ITS | Clinical Summary ---
Author Organization [facility] Address [address] [facility] [address] [facility] [address] [place] [id number] Phone Care Team Providers Care Finishing Range Feeder Name Role Phone Nicole iBrch ELECTRICIAN STATION ASSISTANT Unavailable [phone] Mesha Drake MD Unavailable [phone] Tesfaye Putnam MD Unavailable Maya Khan MD Primary Care Provider [phone] Allergies Active Allergy Reactions Criticality Noted Date Comments Cat Dander Cough,Itching,Sneezing 12/10/2021 Medications apixaban (ELIQUIS) 5 mg tablet Take 1 tablet (5 mg total) by mouth 2 (two) times a day. 025 Active multivit,iron,min erals/lutein (CENTRUM SILVER ULTRA WOMEN'S ORAL) Take 1 tablet by mouth. 025 Active FLUoxetine (PROZAC) 10 MG tablet Take 10 mg by mouth daily. Active atorvastatin (LIPITOR) 20 MG tablet Take 20 mg by mouth nightly at bedtime. Active cholecalciferol (VITAMIN D3) 25 MCG (1,000 unit) tablet Take 1,000 Units by mouth daily. Active metFORMIN (GLUCOPHAGE) 500 MG immediate release tablet Take 1,000 mg by mouth 2 (two) times a day with meals. Active metoprolol tartrate (LOPRESSOR) 25 MG tablet Take 0.5 tablets (12.5 mg total) by mouth 2 (two) times a day. 30 tablet 1 10/05/2 025 Active methIMAzole (TAPAZOLE) 5 MG tablet Take 1 tablet (5 mg total) by mouth daily. 30 tablet 1 Active LANTUS SOLOSTAR U-100 INSULIN 100 unit/mL (3 mL) InPn injection pen Inject 20 Units under the skin nightly at bedtime. 3 mL 11 Active insulin pen needles, disposable, (BD SARTHAK 2ND GEN PEN NEEDLE) 32 gauge x 5/32 Ndle Inject 1 each under the skin daily. E11.9 100 each 3 Active potassium chloride (K-TAB) 20 mEq TbER ER tablet Take 1 tablet (20 mEq total) by mouth every morning. 90 tablet 3 Active FREESTYLE TEST Strp stripsIndications :Type 2 diabetes mellitus with hyperglycemia, with long-term current use of insulin TO TEST BLOOD SUGAR TWICE A DAY DX E11.65 on insulin 200 strip 3 024 2024 Discontinued(N o CancelRX) FREESTYLE 28 gauge lancetsIndication s:Type 2 diabetes mellitus with hyperglycemia, with long-term current use of insulin USE TO TEST TWO TIMES DAILY DX E11.65 on insulin 200 each 3 024 2024 Discontinued(N o CancelRX) atorvastatin (LIPITOR) 20 MG tabletIndications :Mixed hyperlipidemia TAKE 1 TABLET(20 MG) BY MOUTH DAILY 90 tablet 3 025 2024 Discontinued(N o CancelRX) metFORMIN (GLUCOPHAGE) 500 MG tabletIndications :Type 2 diabetes mellitus with hyperglycemia, with long-term current use of insulin TAKE 2 TABLETS(1000 MG) BY MOUTH TWICE DAILY WITH MEALS 360 tablet 3 025 2024 Discontinued(N o longer taking) FLUoxetine (PROZAC) 10 MG capsule Take 1 capsule (10 mg total) by mouth daily. 90 capsule 3 025 2024 Discontinued(N o CancelRX) losartan (COZAAR) 50 MG tabletIndications :Essential hypertension Take 1 tablet (50 mg total) by mouth daily. 90 tablet 3 025 2024 Discontinued insulin glargine (LANTUS SOLOSTAR U-100 INSULIN) 100 unit/mL (3 mL) InPn injection penIndications:Ty pe 2 diabetes mellitus without complication, with long-term current use of insulin Inject 47 Units under the skin nightly at bedtime. ADMINISTER 47 UNITS UNDER THE SKIN DAILY 60 mL 025 2024 Discontinued insulin pen needles, disposable, (BD SARTHAK 2ND GEN PEN NEEDLE) 32 gauge x 5/32 Ndle Inject 1 each under the skin daily. E11.9 100 each 3 2024 Discontinued metoprolol tartrate (LOPRESSOR) 50 MG tablet Take 50 mg by mouth. 025 2024 Discontinued amiodarone (PACERONE) 200 MG tablet One tab daily 30 tablet 3 2024 Discontinued LANTUS SOLOSTAR U-100 INSULIN 100 unit/mL (3 mL) InPn injection penIndications:Ty pe 2 diabetes mellitus without complication, with long-term current use of insulin INJECT 47 UNITS UNDER THE SKIN NIGHTLY AT BEDTIME 60 mL 2024 Discontinued(N o CancelRX) potassium chloride (K-TAB) 20 mEq TbER ER tablet Take 1 tablet by mouth every morning. 2024 Discontinued(R eorder) metoprolol succinate (TOPROL-XL) 100 MG 24 hr tablet Take 1 tablet by mouth every morning. 025 2024 Discontinued furosemide (LASIX) 40 MG tablet Take 40 mg by mouth. 2024 Discontinued dapagliflozin propanediol (FARXIGA) 10 mg tablet Take 10 mg by mouth daily. 2024 Discontinued(S top Taking at Discharge) vitamin D3-vitamin K2 25 mcg (1,000 unit)-90 mcg ODT disintegrating tablet Take 25 mcg by mouth. 2024 Discontinued POTASSIUM CHLORIDE 2 MEQ/ML FOR ORAL USE (KCL) Take 20 mEq by mouth. 2024 Discontinued(N o longer taking) insulin glargine,hum.rec. anlog (LANTUS SOLOSTAR U-100 INSULIN SUBQ) Inject 47 Units under the skin nightly at bedtime. 025 2024 Discontinued metoprolol succinate (TOPROL-XL) 25 MG 24 hr tablet Take 1 tablet (25 mg total) by mouth daily. 90 tablet 2 025 2024 Discontinued(S top Taking at Discharge) furosemide (LASIX) 40 MG tablet Take 0.5 tablets (20 mg total) by mouth daily. 15 tablet 2024 Discontinued(S top Taking at Discharge) LANTUS SOLOSTAR U-100 INSULIN 100 unit/mL (3 mL) InPn injection pen Inject 20 Units under the skin nightly at bedtime. 2024 Discontinued(R eorder) Active Problems Problem Noted Date Diagnosed Date Anemia 02/14/2025 Assessment & Plan (02/15/2025 6:25 PM EDT): Normocytic anemia. H&H stable. Assessment & Plan (02/14/2025 7:40 PM EDT): Normocytic anemia. H&H stable. Concerning with weight loss. --Check iron studies, b12, folate Elevated serum creatinine 02/13/2025 Assessment & Plan (02/15/2025 6:25 PM EDT): Baseline creatinine 0.9. Presented with KIA (creatinine 1.8) likely on the basis of hypoperfusion in the setting of hypotension and atrial fibrillation. Urinalysis with pyuria but appears contaminated with epithelial cells. Patient denies symptoms of UTI. Stable at this time. No further intervention needed. Assessment & Plan (02/14/2025 7:40 PM EDT): Baseline creatinine 0.9. Presented with KIA (creatinine 1.8) likely on the basis of hypoperfusion in the setting of hypotension and atrial fibrillation. Urinalysis with pyuria but appears contaminated with epithelial cells. Patient denies symptoms of UTI. -- Follow renal function closely Assessment & Plan (02/13/2025 3:14 PM EDT): Baseline creatinine 0.9. Presented with KIA (creatinine 1.8) likely on the basis of hypoperfusion in the setting of hypotension and atrial fibrillation. Urinalysis with pyuria but appears contaminated with epithelial cells. Patient denies symptoms of UTI. -- Follow renal function closely --Give IV fluids to facilitate CT is outlined below --Recheck UA Assessment & Plan (02/13/2025 1:06 AM EDT): Baseline creatinine in early 2024 0.7-0.8. Had an episode of KIA during admission for heart failure exacerbation at [facility] last month. Creatinine now elevated. Unclear if this represents a new baseline or KIA. Will hold furosemide. Patient unsure if she is taking Farxiga. Hyperthyroidism 02/13/2025 Assessment & Plan (02/15/2025 6:25 PM EDT): Patient with recent history of mediastinal mass found to be a goiter on EBUS. TSH low and free T4 high consistent with hyperthyroidism. --Beta-chepe --C/w methimazole --Will need to establish care with endocrinology as an outpatient. Follow-up TFTs in 4 weeks. Assessment & Plan (02/14/2025 7:40 PM EDT): Patient with recent history of mediastinal mass found to be a goiter on EBUS. TSH low and free T4 high consistent with hyperthyroidism. --Beta-chepe --C/w methimazole --Will need to establish care with endocrinology as an outpatient. Follow-up TFTs in 4 weeks. Assessment & Plan (02/13/2025 3:14 PM EDT): Patient with recent history of mediastinal mass found to be a goiter on EBUS. TSH low and free T4 high consistent with hyperthyroidism. --Beta-chepe --Start methimazole --Will need to establish care with endocrinology as an outpatient. Follow-up TFTs in 4 weeks. Weight loss 02/13/2025 Assessment & Plan (02/15/2025 6:25 PM EDT): Patient describes 35 pound weight loss in the last several months. She describes lack of appetite. She feels she is up to date on screenings with mammogram and colonoscopy. CT abdomen and pelvis unrevealing for etiology of her weight loss. Patient newly recognized as hyperthyroid which could explain weight loss. -- Nutrition consult -- Treat hyperthyroidism -- Continue to follow in the outpatient setting. Assessment & Plan (02/14/2025 7:40 PM EDT): Patient describes 35 pound weight loss in the last several months. She describes lack of appetite. She feels she is up to date on screenings with mammogram and colonoscopy. CT abdomen and pelvis unrevealing for etiology of her weight loss. Patient newly recognized as hyperthyroid which could explain weight loss. -- Nutrition consult -- Treat hyperthyroidism -- Continue to follow in the outpatient setting. Dispo: Patient's friend Vida raises questions regarding the patient's ability to manage at home. Social work consult placed. Assessment & Plan (02/13/2025 3:14 PM EDT): Patient describes 35 pound weight loss in the last several months. She describes lack of appetite. She feels she is up to date on screenings with mammogram and colonoscopy. CT abdomen and pelvis unrevealing for etiology of her weight loss. Patient newly recognized as hyperthyroid which could explain weight loss. -- Nutrition consult -- Treat hyperthyroidism -- Continue to follow in the outpatient setting. Dispo: Patient's friend Vida raises questions regarding the patient's ability to manage at home. Social work consult placed. Goiter 01/10/2025 Depression 01/10/2025 Paroxysmal atrial fibrillation 12/24/2024 Overview (02/11/2025): Cardioverted in hospital after being on Amiodarone Assessment & Plan (02/15/2025 6:25 PM EDT): Controlled and stable at this time. Assessment & Plan (02/11/2025 4:50 PM EDT): Reverted to [place]. ? If this will hold per discharge - ECG today --> Atrial Fibrillation with obvious conduction delay and ST depression. PT has no chest pain or other signs of ischemia and she does have concern for Heart failure and conduction delay would not be unexpected. I have no access to recent ECG to see if this is a change, at this point, based on hx and exam I do not think ECG represents ischemia. Certainly she is back in Atrial Fibriliation just unclear of significance of other changes. - Unclear if Patient has Cardiology follow up but will work to set up care - Will restart Metoprolol for rate control - Cont. On eliquis - Labs today - ED precautions is she dev elopes chest pain or shortness of breath. 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 Assessment & Plan (06/07/2022 2:17 PM EST): Routine eye exam is up to date Blood pressure and blood sugar control is important in reducing progression of diabetic eye disease We discussed efforts at glucose control improvement and taking time to get back to goal since rapid correction of glucose elevation may be associated with treatment induced complications such as worsening retinopathy Assessment & Plan (12/14/2021 10:31 AM EDT): Reports new spots to be monitored more frequently by opthamologist. GLP1ra therapy contraindicated. Optimize risk factors with modest increase in ARB today and CGM trial to improve glycemic control pending data. Ganglion cyst of wrist, left 08/31/2020 Cat allergies 02/04/2020 Assessment & Plan (11/26/2021 11:03 AM EDT): Recommend azelastine nasal spray 2x/day stop oral antihistamine. Seasonal allergies 10/09/2019 Anxiety disorder 07/31/2017 GERD (gastroesophageal reflux disease) 8 Hyperlipidemia 07/31/2017 Assessment & Plan (06/06/2023 5:13 PM EST): LDL 60, improved On Statin therapy Heart healthy, low sodium diet encouraged Assessment & Plan (10/06/2022 3:58 PM EDT): LDL is in excellent control on current dose of statin Encouraged to continue eating a well-balanced, heart healthy diet and consistent exercise Assessment & Plan (07/13/2022 6:44 PM EST): Stable and looks good. Assessment & Plan (06/07/2022 2:21 PM EST): LDL is in excellent control on current dose of statin Encouraged to get back to eating a well-balanced, heart healthy diet and get back to more consistent exercise Assessment & Plan (12/24/2021 3:37 PM EDT): LDL 75 on statin therapy. Encouraged well-balanced, heart healthy diet with mild-moderate exercise. Assessment & Plan (12/10/2021 4:29 PM EDT): LDL 75 on statin therapy. Encouraged well-balanced, heart healthy diet with mild-moderate exercise. Assessment & Plan (11/26/2021 11:01 AM EDT): Advised sticking to nutrition plan that doesn't encourage weight cycling, despite its claims, it still leads to restrict-binge cycles. Demonstrated to Vida that this is happening to her, despite this she is sticking to Noom. Understands the oxidative stress taht weight cycling puts on the body. Assessment & Plan (08/10/2017 5:47 PM EDT): Excellent LDL on current low dose atorva Essential hypertension 07/31/2017 Assessment & Plan (06/06/2023 5:11 PM EST): Systolic BP slightly elevated, 142/80 Continue ARB and monitor closely Assessment & Plan (10/06/2022 3:57 PM EDT): Blood pressure normal in office, 132/78 Continue ARB and monitor closely Assessment & Plan (07/13/2022 6:43 PM EST): I do recommend she check her bp at home, at least for 3 days in a row and message me with the numbers. Assessment & Plan (06/07/2022 2:23 PM EST): Blood pressure remains above goal Ideally goal bp is <130/80 due to diabetic eye disease We discussed taking Losartan 75mg once daily rather than as a split dose Encouraged to self monitor blood pressure at home, if remains 130/80 or higher then will need increase to 100mg daily Assessment & Plan (12/24/2021 3:36 PM EDT): Improved with increased Losartan. Todays blood pressure in office 140/60. Continue low sodium diet and discontinue Ibuprofen. Assessment & Plan (12/10/2021 4:27 PM EDT): Today's blood pressure in office 160/80 x2 manual sitting and repeated at end of visit. Goal BP <130/80. Modest increase in Losartan to 75mg daily. Recommended discontinuing Ibuprofen for general daily aches. Assessment & Plan (11/26/2021 11:00 AM EDT): If BP elevated next visit will increase ARB. For now -- monitor. Assessment & Plan (02/03/2021 2:45 PM EDT): Vida Leung has hypertension and she is taking the above medication as directed without any side effects. her blood pressure is within normal limits and stable. she will follow up as directed. Assessment & Plan (08/10/2017 5:47 PM EDT): Well controlled blood pressure On ARB therapy Chronic anticoagulation 07/31/2017 Assessment & Plan (02/15/2025 6:25 PM EDT): Continue to monitor. Continue with anticoagulation. In the setting of atrial fibrillation. Type 2 diabetes mellitus, wi long-term current use of insulin 07/31/2017 Overview (02/15/2025): Diagnosis late 40s (mid to late ); had reactive hypoglycemia. Treatment history - Metformin only initially, later added TZD (Avandia and Actos), d/c'd Actos ~2012 and trialed Januvia; currently on basal insulin and metformin Assessment & Plan (02/15/2025 6:25 PM EDT): Continue with insulin. Restart metformin upon discharge. Assessment & Plan (02/15/2025 8:21 AM EDT): >>ASSESSMENT AND PLAN FOR TYPE 2 DIABETES MELLITUS WITH HYPERGLYCEMIA, WITH LONG-TERM CURRENT USE OF INSULIN WRITTEN ON 08/10/2017 5:50 PM BY MESHA DRAKE MD Doing well on current regimen, recent increase in Lantus has worked well but advised to monitor blood sugars and reduce this if these start to trend down with increased activity Increased activity and reduced insulin requirement will also help with weight loss Will continue current dose of Metformin Advised consistent activity and healthy diet Assessment & Plan (02/15/2025 8:21 AM EDT): >>ASSESSMENT AND PLAN FOR TYPE 2 DIABETES MELLITUS WITH HYPERGLYCEMIA, WITH LONG-TERM CURRENT USE OF INSULIN WRITTEN ON 02/03/2021 2:51 PM BY RAVI COMBS DO Vida Leung has diabetes and she is taking the above medication as directed. I reviewed her most recent A1c today in the office- 7.7 and this is trending up. I advised her to continue to improve her diet and exercise regimen. she will follow up in 3 months. Assessment & Plan (02/15/2025 8:21 AM EDT): >>ASSESSMENT AND PLAN FOR TYPE 2 DIABETES MELLITUS WITH HYPERGLYCEMIA, WITH LONG-TERM CURRENT USE OF INSULIN WRITTEN ON 11/26/2021 11:02 AM BY MAAY KHAN MD See below for nutrition discussion. I recommend movement and nutrition goals from weight loss as the weight loss component leads to more restrict/binge. She understands. I will recheck A1C and refilled her metformin and recommend she f/u with Dr Drake et al bc she really does need more intensive mgmt to ensure her DM comes under tight control. Assessment & Plan (02/15/2025 8:21 AM EDT): >>ASSESSMENT AND PLAN FOR TYPE 2 DIABETES MELLITUS WITH HYPERGLYCEMIA, WITH LONG-TERM CURRENT USE OF INSULIN WRITTEN ON 12/14/2021 10:32 AM BY JYOTHI UMANZOR CNP Vida's most recent A1C is 8.3% which is elevated compared to last fall 7.7%. Review of her chart reveals a period off her diet and binging. She has since resumed her Noom diet. She has been actively self managing her basal insulin and sounds like this is, at least occasionally, based on calorie cycling. Vida does not have her glucometer with her today. She reports her fasting sugar today is 99 and 147 prior to lunch. She occasionally checks her sugars before dinner and is sometimes >200. More consistent glucose data per CGM trial would be helpful to evaluate overall patterns. Vida is agreeable with a sensor placed today. She reports occasional hypoglycemic symptoms which are due to her forgetting to eat when busy with an activity. Discussed with her that this may also be due to the nature of long acting basal insulin which was not intended to be adjusted usually more than twice weekly in conjunction with calorie cycling. No medications were adjusted today with changes expected pending CGM trial. GLP1ra contraindicated due to retinopathy. Consider SGLT2i which may have added indirect benefit of lowering blood pressure and insulin changes as needed. Discussed ADA recommendations for heart healthy diet, low in sodium. Emphasized need for consistency in diet, especially in carbs, to properly dose basal insulin. Reviewed hypoglycemia prevention, recognition and management with literature provided. Encouraged to continue to make healthy diet choices and remain as physically active as tolerates. Encouraged to contact us with any concerns or question and follow up in 2 weeks. Assessment & Plan (02/15/2025 8:21 AM EDT): >>ASSESSMENT AND PLAN FOR TYPE 2 DIABETES MELLITUS WITH HYPERGLYCEMIA, WITH LONG-TERM CURRENT USE OF INSULIN WRITTEN ON 12/24/2021 3:46 PM BY JYOTHI UMANZOR CNP Vida's CGM trial was shorter due to sensor falling off on day. The download reflected fairly stable blood sugars 95% in target range, although she tends to have borderline low-normal sugars frequently throughout the day. She is managed with Metformin and Lantus 45u nightly (mostly per report). Since she continues to lose weight and has incresed her daily physical activity we discussed decreasing her basal therapy to 37u nightly, approximately 15% change. Vida is comfortable with this change. Reviewed nature of basal insulin therapy and encouraged her to make any adjustments only as needed and only 1-2 times weekly. Additionally we discussed incorporating some modestly higher calorie meals a couple evenings per week which she is also agreeable. Reviewed hypoglycemia prevention, recognition and management. Encouraged to continue to make healthy diet choices and remain as physically active as she comfortably tolerates. Encouraged to contact us with any concerns or question and follow up in 3 months. Assessment & Plan (02/15/2025 8:21 AM EDT): >>ASSESSMENT AND PLAN FOR TYPE 2 DIABETES MELLITUS WITH HYPERGLYCEMIA, WITH LONG-TERM CURRENT USE OF INSULIN WRITTEN ON 06/07/2022 2:20 PM BY MESHA DRAKE MD Vida has had an interruption to her usually very healthy mindful lifestyle, she is now motivated to get back to this and feels confident that she can We discussed the importance of staying active and consistently being intentional with food and activity choices, also being intentional with less healthy options/treats may help to keep this more modest Vida will continue current dose of basal insulin We discussed importance of regular activity Vida is encouraged to self monitor blood sugars and blood pressure and to let us know if she sees any concerning patterns with these Encouraged to contact us with any concerns or question and follow up in 3 months Assessment & Plan (02/15/2025 8:21 AM EDT): >>ASSESSMENT AND PLAN FOR TYPE 2 DIABETES MELLITUS WITH HYPERGLYCEMIA, WITH LONG-TERM CURRENT USE OF INSULIN WRITTEN ON 07/13/2022 6:43 PM BY MAYA KHAN MD Today I have discussed referral to Dr Calix's weight loss clinic at [facility]. Her A1C is getting worse despite max treatment including insulin. At this point she has been on diabetes treatment since her 40s and is still struggling w/ control. She is in a cycle of dieting and binging and gives in to her sweet tooth quite frequently. She would benefit from the support of Dr Calix's wt loss clinic and possibly bariatric surgery. Assessment & Plan (02/15/2025 8:21 AM EDT): >>ASSESSMENT AND PLAN FOR TYPE 2 DIABETES MELLITUS WITH HYPERGLYCEMIA, WITH LONG-TERM CURRENT USE OF INSULIN WRITTEN ON 10/06/2022 4:09 PM BY JYOTHI UMANZOR, SHAILESH Vida's A1c is very good today at 6.9%. she has been more consistent with her diet recently. She is no longer following the Noom diet and is trying the [facility] diet program. Vida was very worried her A1c would be very high and felt relief and surprise with her good results. Congratulated her good efforts and enscouraged her to continue with consistent exercise and healthy eating. Vida is able to relieve a little more stress these days by reading a good book. Encouraged her to consider Audible to listen to a novel while walking daily. She continues on Lantus 37u nightly and Metformin 1G twice daily. Cautioned Vida that if she continues to lose weight she will require less insulin and to be mindful of low sugars. Reviewed hypoglycemia prevention, recognition and management. Encouraged to continue to make healthy diet choices and remain as physically active as tolerates. Encouraged to contact us with any concerns or questions and follow up 4 months. Assessment & Plan (02/15/2025 8:21 AM EDT): >>ASSESSMENT AND PLAN FOR TYPE 2 DIABETES MELLITUS WITH HYPERGLYCEMIA, WITH LONG-TERM CURRENT USE OF INSULIN WRITTEN ON 06/06/2023 5:21 PM BY JYOTHI UMANZOR, CAR RENTAL CLERK Vida reports her diet recently has not been as good over the holidays. Ice cream is her weakness. Has tried Noom in the past as well as the [place] Healthy Diet plan as well. Vida has reduced her coffee and red meat intake recently. We dreviewed general ADA dietary guidelines today. Vida is amenable to visiting with our diabetic educators with a referral placed today to further discuss lifestyle modifications that may improve her sugars. She additionally reports she has not been monitoring her sugars quite as closely and forgot her glucometer. Her A1c remains 7.4%. Her sugars are likely high and she reports her FPGs are high when she checks. Discussed how to titrate her Lantus no more than twice weekly to target FPGs 100-130s. Plan- Adjust Lantus to target fasting morning sugars to 100-130 most days of the week. Max daily dose is 45u. If experience >2x unexpected lows then decrease by 4u. Reviewed hypoglycemia prevention, recognition and management. Encouraged to continue to make healthy diet choices and remain as physically active as tolerates. Encouraged to contact us with any concerns or questions and follow up in 3 months. Assessment & Plan (02/15/2025 8:21 AM EDT): >>ASSESSMENT AND PLAN FOR TYPE 2 DIABETES MELLITUS WITH HYPERGLYCEMIA, WITH LONG-TERM CURRENT USE OF INSULIN WRITTEN ON 09/21/2023 11:37 AM BY PATRICIA ANDREWS PA-C Control is reasonable based upon the patient's recall of her SMBG readings. No frequent or severe hypoglycemia. Will maintain her regimen as she is planning to restart the [employer] program and work on increasing her activity levels. Continue to work on eating healthier and being active. To call or message with any issues managing her glucose levels. [facility] to be done with PCP orders Assessment & Plan (02/15/2025 8:21 AM EDT): >>ASSESSMENT AND PLAN FOR TYPE 2 DIABETES MELLITUS WITH HYPERGLYCEMIA, WITH LONG-TERM CURRENT USE OF INSULIN WRITTEN ON 02/12/2024 11:54 AM BY PATRICIA ANDREWS PA-C Control is unknown as the patient has not been checking her glucose levels. No frequent or severe hypoglycemia. She had a couple times of feeling low as she went too long without eating. She had something to eat and then was fine. She is going to work on checking her glucoses levels again. Will maintain her regimen until can view her labs and glucose levels to determine if adjustments are needed. Continue to work on eating healthier and being active. To call or message with any issues managing her glucose levels. [facility] ordered Assessment & Plan (02/15/2025 8:21 AM EDT): >>ASSESSMENT AND PLAN FOR TYPE 2 DIABETES MELLITUS WITH HYPERGLYCEMIA, WITH LONG-TERM CURRENT USE OF INSULIN WRITTEN ON 11/07/2024 9:57 AM BY PATRICIA ANDREWS PA-C Control is poor based upon her last A1C of 9.9%. No frequent or severe hypoglycemia. She wants to work on testing her glucose levels and improving her diet to see how her glucose control does. Will maintain her regimen for the next few weeks. She will come back and we will review her readings and then determine what adjustments are needed. Continue to work on eating healthy and being active. To call or message with any issues managing her glucose levels. Up to date with [facility]. Labs ordered. I have maintained a long-term, longitudinal relationship with this patient, overseeing care of chronic conditions, including diabetes. This care relationship has significantly influenced my decision-making and treatment plans during today's encounter. Assessment & Plan (02/15/2025 8:21 AM EDT): >>ASSESSMENT AND PLAN FOR TYPE 2 DIABETES MELLITUS WITH HYPERGLYCEMIA, WITH LONG-TERM CURRENT USE OF INSULIN WRITTEN ON 12/31/2024 12:21 PM BY PATRICIA ANDREWS PA-C Control is unknown as the patient forgot her glucometer at home. No frequent or severe hypoglycemia. She recalls having 2 episodes of hypoglycemia due to going too long without eating. She corrected and was fine. She wants to wait to make any medication adjustments until after viewing her labs to determine how her control is doing. Continue to work on eating healthy and being active. To call or message with any issues managing her glucose levels. Up to date with [facility]. Labs ordered. I have maintained a long-term, longitudinal relationship with this patient, overseeing care of chronic conditions, including diabetes. This care relationship has significantly influenced my decision-making and treatment plans during today's encounter. Assessment & Plan (02/15/2025 8:21 AM EDT): >>ASSESSMENT AND PLAN FOR TYPE 2 DIABETES MELLITUS WITH HYPERGLYCEMIA, WITH LONG-TERM CURRENT USE OF INSULIN WRITTEN ON 02/11/2025 2:51 PM BY LANCE MORRIS DO On Dapagliflozin, Insulin and Metformin. - Taking 2000mg bid of Metformin. Will have this adjusted back to 1000mg bid. - For follow up labs - With sig. Weight loss may need to decrease Insulin to avoid low BS. Was adjusted in Rehab after BS found to be in 40's Assessment & Plan (02/15/2025 8:21 AM EDT): >>ASSESSMENT AND PLAN FOR TYPE 2 DIABETES MELLITUS WITH HYPERGLYCEMIA, WITH LONG-TERM CURRENT USE OF INSULIN WRITTEN ON 02/14/2025 7:40 PM BY EMA OLIVARES PA-C, MS Blood sugars 140s. A1c 7.5. -- C/w Lantus nightly -- Lispro insulin sliding scale -- Metformin on hold while in the hospital Assessment & Plan (02/15/2025 8:21 AM EDT): >>ASSESSMENT AND PLAN FOR TYPE 2 DIABETES MELLITUS WITH HYPERGLYCEMIA, WITH LONG-TERM CURRENT USE OF INSULIN WRITTEN ON 02/13/2025 3:14 PM BY EMA OLIVARES PA-C, MS Blood sugars 220s. A1c 7.5. -- Restart Lantus nightly -- Lispro insulin sliding scale -- Metformin on hold while in the hospital Assessment & Plan (02/15/2025 8:21 AM EDT): >>ASSESSMENT AND PLAN FOR TYPE 2 DIABETES MELLITUS WITH HYPERGLYCEMIA, WITH LONG-TERM CURRENT USE OF INSULIN WRITTEN ON 02/13/2025 1:06 AM BY CYNDIE LOPEZ DO Will give basal bolus insulin therapy. Chronic systolic heart failure Overview (02/13/2025): TTE at [facility] with LVEF 40-45% Assessment & Plan (02/15/2025 6:25 PM EDT): Cardiac medications adjusted prior to admission. Has had episodes of orthostasis. Stable at this time. Assessment & Plan (02/14/2025 7:40 PM EDT): --Hold usual lasix today d/t orthostatic hypotension. --ARB d/c'd for low BPS prior to admission --Farxiga on hold while in the hospital Assessment & Plan (02/13/2025 3:14 PM EDT): Appears euvolemic. Getting 1L IVF for hydration in the setting of receiving CT contrast. --Hold usual lasix today. Restart tomorrow. --ARB d/c'd for low BPS prior to admission --Farxiga on hold while in the hospital Assessment & Plan (02/13/2025 1:06 AM EDT): Unclear what she is taking at home. She does not know if she is taking Farxiga and furosemide. Currently her creatinine is elevated and difficult to ascertain whether this is KIA or a new baseline. With her hypotension I am holding off on Farxiga and furosemide anyway. Resolved Problems Problem Noted Date Diagnosed Date Resolved Date Orthostatic hypotension 02/14/202508/2024 Assessment & Plan (02/14/2025 7:40 PM EDT): May be clinically dry d/t poor intake. --Encourage po fluids --Give 1L IVF --Decrease Lopressor --Check am cortisol --Check orthostatic BPs in am Nocturnal hypoxia 02/14/2025 02/15/2025 Assessment & Plan (02/14/2025 7:44 PM EDT): Transient hypoxia overnight, asymptomatic. Pt denies h/o snoring or MEIR. --Check overnight oxymetry --Outpatient PSG Atrial fibrillation with RVR 02/13/2025 02/15/2025 Assessment & Plan (02/14/2025 7:40 PM EDT): Patiently recently admitted to [facility] for A-fib with RVR. Patient's status post cardioversion. She had a lengthy hospital stay and then was discharged to short- term rehab. The patient has not been home for very long. She presents with near syncope in the setting of A-fib with RVR and hypotension. Rate responded to Dilt followed by digoxin. Blood pressure responded to IV fluids. Troponin 40, 37. Appreciate cards input. No chest pain or pressure. BP low, orthostatic today. Rate controlled. --Decrease beta-chepe --Apixaban for primary stroke prophylaxis --Treat hyperthyroidism --Continue with telemonitoring Assessment & Plan (02/13/2025 3:14 PM EDT): Patiently recently admitted to [facility] for A-fib with RVR. Patient's status post cardioversion. She had a lengthy hospital stay and then was discharged to short- term rehab. The patient has not been home for very long. She presents with near syncope in the setting of A-fib with RVR and hypotension. Rate responded to Dilt followed by digoxin. Blood pressure responded to IV fluids. Troponin 40, 37. Appreciate cards input. No chest pain or pressure. --Titrate up beta-chepe --Apixaban for primary stroke prophylaxis --Treat hyperthyroidism --Continue with telemonitoring Assessment & Plan (02/13/2025 1:06 AM EDT): Hypotensive as an outpatient and given diltiazem by EMS. Heart rate improved and blood pressure still on the soft side. Given digoxin in the emergency department and this will be continued. ED will see the patient in consultation. Of note, she was previously on amiodarone and metoprolol tartrate. She did have metoprolol succinate ordered 02/11, but she does not think she started taking this yet. Acute kidney injury 02/11/2025 02/16/20 25 Overview (02/11/2025): While in hospital for A-Fib Assessment & Plan (02/11/2025 2:55 PM EDT): Last labs done immediately after discharge. - Repeat labs today - cont. Potassium - consider adjusting furosemide if cont. Injury - Note that she was on Amiodarone, ? If injury cause vs hypotension vs Iatrogenic History of endometrial cancer 07/05/2023 02/15/2025 Overview (07/05/2023): S/p CONOR 1998, curative Anxiety attack 07/05/2023 02/15/2025 Recurrent infection of skin 11/26/2021 02/15/2025 Assessment & Plan (11/26/2021 11:03 AM EDT): Rx'd doxycycline to take in bursts as needed for recurrent skin infections 2/2 uncontrolled DM. Morbid obesity 07/31/2017 07/05/2023 Assessment & Plan (10/06/2022 3:59 PM EDT): Has lost 4 lbs with healthy diet and a little exercise Encouraged to continue Assessment & Plan (07/13/2022 6:43 PM EST): Referred to Dr Ty. Post-nasal drip 07/31/2017 02/11/2025 Encounters Date Type Department Care Team Description 02/22/2025 9:30 AM EDT Home Care Visit [facility] [address] [place] [phone] Griffin Young, PT PT OASIS START OF CARE (SOC) 02/22/2025 Home Care Visit [facility] [address] [place] [phone] Griffin Young, PT CASE COMMUNICATION 02/22/2025 Home Care Visit [facility] [address] [place] [phone] Kenna Islas, RN CASE COMMUNICATION 02/22/2025 Plan of Care Documentation [facility] [address] [place] [phone] 02/22/2025 Telephone [facility] [address] [place] [address] Pooja Claros RN Follow-up (After Hours Call ) 02/20/2025 Refill [facility] [address] [place] [address] Maya Khan MD 02/18/2025 Home Care Visit [facility] [address] [place] [phone] Griffin Young, PT CASE COMMUNICATION 02/16/2025 Refill [facility] [address] [facility] [place], [place] [phone] Dickson Landon PA-C, MS Medication Refill 02/13/2025 Procedure Pass [facility], Ct Scan [facility] [address] [place] [address] 02/13/2025 Procedure Pass [facility] Ct Scan [facility] [address] [place] [address] 02/13/2025 Home Care Visit [facility] [address] [place] [phone] Anni Reed RN NON ADMIT HOME HEALTH VISIT 02/13/2025 [facility] [address] [place] [address] Homehealth, Caty Arizmendi MD 02/13/2025 E-Consult [facility] [address] [place] [address] Marlon Jones MD 02/12/2025 10:07 PM EDT - 02/16/2025 11:31 AM EDT Hospital Encounter [facility] [address] [place] [address] Jovanni Collins MD Hampson, Brian S, DO Altman, Evan K, DO, MPH Brit Helm MD Zaman, Tonbira S, MD Discharge Disposition: Home-Health Care Svc 02/12/2025 Home Care Visit [facility] [address] [place] [address] Caity Kennedy, LEONORA CASE COMMUNICATION 02/12/2025 Home Care Visit [facility] [address] [place] [address] Anni Reed RN TELEPHONE ENCOUNTER 02/12/2025 Telephone [facility] [address] [place], [place] [phone] Lance Morris DO 02/11/2025 3:28 PM EDT - 02/11/2025 11:59 PM EDT Hospital Encounter [facility] [address] [place] [address] Lance Morris DO Discharge Disposition: Home or Self Care 02/11/2025 2:00 PM EDT Office Visit [facility] [address] [place] [address] Lance Morris DO Atrial fibrillation, new onset (Primary Dx); Heart failure with mildly reduced ejection fraction; Other specified diabetes mellitus with other specified complication, unspecified 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; Type 2 diabetes mellitus with hyperglycemia, with long-term current use of insulin; Acute kidney injury 02/11/2025 Telephone [facility] [address] [place] [address] Lance Morris DO 02/11/2025 [facility] [address] [place] [phone] Anni Reed RN TELEPHONE ENCOUNTER 02/10/2025 Home Care Visit [facility] [address] [place] [phone] Anni Reed RN TELEPHONE ENCOUNTER 02/06/2025 Orders Only [facility] [address] [place] [phone] Homehealth, Interface ProviderMD 02/06/[address] [address] Maya Khan MD TCM Visit (Brit Day) 02/03/2025 9:34 AM EDT - 02/03/2025 11:59 PM EDT Hospital Encounter [facility] Laboratory [address] [place] [address] Nancy Valentine NP Discharge Disposition: Home or Self Care 02/03/2025 Refill [facility] [address] [place] [address] Patricia Andrews PA-C Medication Refill 02/03/2025 Patient Outreach [facility] [address] [place] [address] Mila Quintana, OT Non Acute Coordination (TCM following) 02/03/2025 Transcribe Orders [facility]imen [facility] [address] [place] [address] Nancy Valentine NP Atrial fibrillation, unspecified type (Primary Dx); Other specified diabetes mellitus with other specified complication, unspecified 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 01/10/2025 2:00 PM EDT Office Visit [facility] [address] [place] [address] Migel Hull MD Atrial fibrillation, new onset (Primary Dx); Type 2 diabetes mellitus with hyperglycemia, with long-term current use of insulin; Goiter; Primary hypertension; Other depression 12/26/2024 Telephone [facility] [address] [place] [address] Maya Khan MD TCM Visit 12/24/2024 12:50 PM EDT Office Visit [facility] [address] [place] [address] Patricia Andrews PA-C Type 2 diabetes mellitus with hyperglycemia, with long-term current use of insulin (Primary Dx) 12/12/2024 Telephone [facility] [address] [place] [address] Maya Khan MD Appointment (SYDNEY Amado pt has been admitted in the [facility], no able to make her appt. Did not want to r/s at this time) from Last 3 Months Immunizations Immunization Administration Dates Next Due COVID-19 (Pre-03/06) [place] Vaccine, rS-Ad26, PF 07/29/2020 COVID-19 (Pre-03/06) Pfizer Vaccine, Bivalent 12+ 06/27/2022 Influenza High-Dose Quadriva lent Preservative Free IM 06/27/2022,03/24/2020 Influenza High-Dose Trivalen t Preservative Free IM 02/15/2025,03/06/2024,03/24/2020,02/17,02/17/2016 Influenza Quadrivalent Prese rvative Free IM 04/09/2018 Pneumococcal conjugate PCV13 01/26/2015 Pneumococcal polysaccharide PPSV23 04/09/2018 RSV Vaccine (bivalent) 02/12/2023 Td (adult) 5 Lf Tetanus Toxo id, PF, Adsorbed 01/26/2015 Tdap 10/29/2017 Zoster recombinant 02/12/2023,03/24/2020 Family History Medical History Relation Comments Stroke Father Heart attack Maternal Grandfather Diabetes type II Maternal Grandmother Diabetes type II Mother Endometrial cancer Mother Stroke Mother Relation Status Comments Father Maternal Grandfather Maternal Grandmother Mother Social History Tobacco Use Types Packs/Day Years Used Date Smoking Tobacco: Former Cigarettes 1 8 0 05/15/1980 - 05/15/1988 Smokeless Tobacco: Never Tobacco Cessation:Counseling Given: Not Answered Alcohol Use Standard Drinks/Week Comments Yes 0 [...] Orientation Straight 10/09/2019 7: 46 AM EDT Last Filed Vital Signs Vital Sign Reading Time Taken Comments Blood Pressure 122/64 02/22/2025 10:31 AM EDT Pulse 88 02/22/2025 10:31 AM EDT Temperature 36.6 C (97.9 F) 02/22/2025 10:31 AM EDT Respiratory Rate 18 02/22/2025 10:31 AM EDT Oxygen Saturation 98% 02/22/2025 10:31 AM EDT Inhaled Oxygen Concentration - - Weight 77.8 kg (171 lb 8 oz) 02/15/2025 8:27 AM EDT Height 152.4 cm (5') 02/13/2025 3:45 AM EDT Body Mass Index 33.49 02/13/2025 3:45 AM EDT Plan of Treatment Upcoming Encounters Date Type Department Care Team (Late st Contact Info) Description 02/23/2025 Home Care Visit [facility] [address] [place], [place] [phone] Donya Matos, LEONORA [address] [place] [address] 03/03/2025 4:00 PM EDT Office Visit [facility] [address] [address] Maya Khan MD [address] [place] [address], [address] [place] [address] [email or web address] Health Maintenance Due Date Last Done Comments OSTEOPOROSIS SCREENING INITIAL (ONE-TIME) 2013 URINE MICROALBUMIN/CREATININE RATIO 09/19/2019 09/18/2018, 07/26/2017 DIABETIC EYE EXAM 03/17/2021 03/17/2020, 05/31/2018 LIPID PANEL 09/20/2024 09/21/2023, 05/16, 02/01/2021, Additional history exists COVID-19 VACCINE ( season) 2025 03/06/2024, 02/12/2023, 06/27/2022, Additional history exists HEMOGLOBIN A1C 05/13/2025 02/11/2025, 08/14, 09/21/2023, Additional history exists BLOOD PRESSURE 08/23/2025 02/22/2025 DEPRESSION SCREENING 09/01/2025 09/01/2024 CREATININE LEVEL 02/15/2026 02/15/2025, 07/2024, 02/13/2025, Additional history exists POTASSIUM LEVEL 02/15/2026 02/15/2025, 07/2024, 02/13/2025, Additional history exists Adult Td,Tdap Booster 10/30/2027 10/29/2017, 015 PNEUMOCOCCAL VACCINES (50+ years) Completed 04/09/2018, 01/26/2015 HEPATITIS C SCREENING Completed 09/18/2018 RSV VACCINE Completed 02/12/2023 ZOSTER VACCINES Completed 02/12/2023, 03/24/2020 SMOKING STATUS SCREENING (Once After 26 Yrs) Completed 02/11/2025 INFLUENZA VACCINE Completed 02/15/2025, , 06/27/2022, Additional history exists HEPATITIS A VACCINES Aged Out No long er eligible based on patient's age to complete this topic HIB VACCINES Aged Out No longer eligi ble based on patient's age to complete this topic MENINGOCOCCAL VACCINES (ACWY) Aged Out No longer eligible based on patient's age to complete this topic MENINGOCOCCAL VACCINES (B) Aged Out N o longer eligible based on patient's age to complete this topic Medical Devices Not on file Procedures Procedure Name Priority Date/Time Associated Diagnosis Comments POCT GLUCOSE Routine 02/15/2025 8:06 PM EDT POCT GLUCOSE Routine 02/15/2025 4:13 PM EDT POCT GLUCOSE Routine 02/15/2025 12:24 PM EDT FOLATE Routine 02/15/2025 5:57 AM EDT VITAMIN B12 Routine 02/15/2025 5:57 AM EDT IRON AND IRON BINDING CAPACITY Routine 02/15/2025 5:57 AM EDT BASIC METABOLIC PANEL Timed 02/15/2025 5:57 AM EDT CBC Timed 02/15/2025 5:57 AM EDT CORTISOL AM Timed 02/15/2025 5:57 AM EDT POCT GLUCOSE Routine 02/14/2025 8:16 PM EDT POCT GLUCOSE Routine 02/14/2025 4:50 PM EDT POCT GLUCOSE Routine 02/14/2025 12:16 PM EDT MAGNESIUM Routine 02/14/2025 6:17 AM EDT PHOSPHORUS Routine 02/14/2025 6:17 AM EDT CBC AND DIFFERENTIAL Routine 02/14/2025 6:17 AM EDT BASIC METABOLIC PANEL Routine 02/14/2025 6:17 AM EDT DIGOXIN LEVEL Timed 02/14/2025 6:17 AM EDT POCT GLUCOSE Routine 02/13/2025 9:12 PM EDT URINE SEDIMENT Routine 02/13/2025 6:00 PM EDT URINALYSIS W/REFLEX URINE CULTURE Routine 02/13/2025 6:00 PM EDT URINE CULTURE Routine 02/13/2025 6:00 PM EDT POCT GLUCOSE Routine 02/13/2025 4:[address] ABDOMEN/PELVIS WITH CONTRAST Routine 02/13/2025 1:[address] CHEST PULMONARY ANGIOGRAM (ACUTE) Routine 02/13/2025 1:03 PM EDT COVID PANDEMIC RESPIRATORY VIRAL ORDER (PRO) Routine 02/13/2025 10:19 AM EDT FREE T4 Routine 02/13/2025 4:38 AM EDT TSH WITH REFLEX Routine 02/13/2025 4:38 AM EDT CBC Routine 02/13/2025 4:38 AM EDT PHOSPHORUS Routine 02/13/2025 4:38 AM EDT MAGNESIUM Routine 02/13/2025 4:38 AM EDT BASIC METABOLIC PANEL Routine 02/13/2025 4:38 AM EDT URINE SEDIMENT STAT 02/13/2025 12:28 AM EDT URINALYSIS W/REFLEX URINE CULTURE STAT 02/13/2025 12:28 AM EDT URINE CULTURE Routine 02/13/2025 12:28 AM EDT TROPONIN STAT 02/12/2025 11:38 PM EDT XR CHEST PORTABLE Timed 02/12/2025 10: 58 PM EDT COVID PANDEMIC RESPIRATORY VIRAL ORDER (PRO) STAT 02/12/2025 10:57 PM EDT BLOOD CULTURE, ROUTINE STAT 10:42 PM EDT PT-INR STAT 02/12/2025 10:41 PM EDT TROPONIN STAT 02/12/2025 10:41 PM EDT NT-PROBNP STAT 02/12/2025 10:41 PM EDT VENOUS BLOOD GAS STAT 02/12/2025 10:4 1 PM EDT LACTIC ACID (LACTATE) STAT 02/12/2025 10:41 PM EDT MAGNESIUM STAT 02/12/2025 10:41 PM EDT LFTS (HEPATIC PANEL) STAT 02/12/2025 10:41 PM EDT BASIC METABOLIC PANEL STAT 02/12/2025 10:41 PM EDT CBC AND DIFFERENTIAL STAT 02/12/2025 10:41 PM EDT BLOOD CULTURE, ROUTINE STAT 10:41 PM EDT ECG 12-LEAD Routine 02/12/2025 10:28 PM EDT ECG 12-LEAD Routine 02/12/2025 10:20 PM EDT ECG 12-LEAD STAT 02/12/2025 10:19 PM EDT ECG 12-LEAD Routine 02/11/2025 4:26 PM EDT Atrial fibrillation, new onset HEMOGLOBIN A1C Routine 02/11/2025 3:32 PM EDT Other specified diabetes mellitus with other specified complication, unspecified 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 Type 2 diabetes mellitus with hyperglycemia, with long-term current use of insulin COMPREHENSIVE METABOLIC PANEL Routine 02/11/2025 3:32 PM EDT Acute kidney injury MAGNESIUM Routine 02/11/2025 3:32 PM EDT Acute kidney injury PHOSPHORUS Routine 02/03/2025 4:30 AM EDT Atrial fibrillation, unspecified type Other specified diabetes mellitus with other specified complication, unspecified 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 MAGNESIUM Routine 02/03/2025 4:30 AM EDT Atrial fibrillation, unspecified type Other specified diabetes mellitus with other specified complication, unspecified whether correction insulin use CBC AND DIFFERENTIAL Routine 02/03/2025 4:30 AM EDT Atrial fibrillation, unspecified type Other specified diabetes mellitus with other specified complication, unspecified 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 COMPREHENSIVE METABOLIC PANEL Routine 02/03/2025 4:30 AM EDT Atrial fibrillation, unspecified type Other specified diabetes mellitus with other specified complication, unspecified whether correction insulin use LIPID PANEL Routine 09/21/2023 11:08 AM EDT Type 2 diabetes mellitus with hyperglycemia, with long-term current use of insulin DIABETES EYE EXAM FOR RESULT ENTRY ONLY Routine 03/17/2020 MICROALBUMIN/CREATININ E RATIO, RANDOM URINE Routine 09/18/2018 11:03 AM EDT Type 2 diabetes mellitus without complication, with long-term current use of insulin HEPATITIS C ANTIBODY, QUALITATIVE Routine 09/18/2018 11:03 AM EDT Screening for condition from Last 3 Months or Most Recently Relevant to Health Maintenance Results * (ABNORMAL) POCT Glucose (02/15/2025 8:06 PM EDT) Only the most recent of8 resultswithin the time period is included. Glucose, POCT 109(H) 70 - 100 mg/dL [facility] 02/15/2025 8:06 PM EDT 02/15/2025 8:08 PM EDT us Katerina Lazaro MD POINT OF CARE TEST ORDERABLES Final Result [address] [address] * Cortisol AM (02/15/2025 5:57 AM EDT) CORTISOL AM 14.8 6.02 - 18.4 ug/dL [facility] Blood 02/15/2025 5:57 AM EDT 02/15/2025 6:17 AM EDT us Ema Olivares PA-C, MS LAB BLOOD ORDERAB LES Final Result Performing Organization Address [facility]/ZIP Co de Phone Number [address] [address] * (ABNORMAL) Iron and iron binding capacity (02/15/2025 5:57 AM EDT) IRON 51 30 - 160 ug/dL [facility] IRON BINDING CAPACITY 157(L) 228 - 428 ug/dL [facility] TRANSFERRIN SATURAT. 32 15 - 50 % [facility] Blood 02/15/2025 5:57 AM EDT 02/15/2025 6:17 AM EDT us Ema Olivares PA-C, MS LAB BLOOD ORDERAB LES Final Result Performing Organization Address City/[facility]/ZIP Co de Phone Number [address] [address] * (ABNORMAL) CBC (02/15/2025 5:57 AM EDT) Only the most recent of2 resultswithin the time period is included. WBC 5.71 4.00 - 11.00 K/uL [facility] RBC 3.63(L) 4.00 - 5.20 M/uL [facility] HGB 10.3(L) 12.0 - 16.0 g/dL [facility] HCT 32.4(L) 36.0 - 46.0 % [facility] PLT 186 150 - 450 K/uL [facility] MCV 89.3 80.0 - 100.0 fL [facility] MCH 28.4 27.0 - 31.0 pg [facility] MCHC 31.8(L) 32.0 - 36.0 g/dL [facility] RDW 14.0 11.5 - 14.5 % [facility] MPV 10.5 8.4 - 12.0 fL [facility] NRBC 0.00 0.00 /100 WBCs [facility] ABSOLUTE NRBC 0.00 0.00 K/uL [facility] Blood 02/15/2025 5:57 AM EDT 02/15/2025 6:17 AM EDT Ema Olivares PA-C, MS LAB BLOOD ORDERAB LES Final Result Performing Organization Address City/[facility]/ZIP Co de Phone Number [address] [address] * (ABNORMAL) Folate (02/15/2025 5:57 AM EDT) FOLIC ACID >20.0(H) 4.2 - 19.9 ng/mL [facility] [facility] Blood 02/15/2025 5:57 AM EDT 02/15/2025 6:17 AM EDT Ema Olivares PA-C, MS LAB BLOOD ORDERAB LES Final Result Performing Organization Address City/[facility]/ZIP Co de Phone Number [address] [address] * Vitamin B12 (02/15/2025 5:57 AM EDT) Pathologist [facility] VITAMIN B12 968 232 - 1,245 pg/mL [facility] Blood 02/15/2025 5:57 AM EDT 02/15/2025 6:17 AM EDT Ema Olivares PA-C, MS LAB BLOOD ORDERAB LES Final Result Performing Organization Address City/[facility]/ZIP Co de Phone Number [address] [address] * (ABNORMAL) Basic metabolic panel (02/15/2025 5:57 AM EDT) Only the most recent of4 resultswithin the time period is included. [facility] SODIUM 140 133 - 146 mmol/L [facility] CHLORIDE 107 96 - 108 mmol/L [facility] POTASSIUM 3.8 3.3 - 5.1 mmol/L [facility] CO2 25 21 - 35 mmol/L [facility] BUN 20(H) 6 - 19 mg/dL [facility] CREATININE 1.20 0.5 - 1.5 mg/dL [facility] GLUCOSE 108(H) 70 - 99 mg/dL [facility] CALCIUM 9.2 8.4 - 10.3 mg/dL [facility] EGFR 47(L) >59 mL/min/1.7 3m2 [facility] Comment:Estimated glomerular filtration rate calculated using the CKD-EPI refit equation. ANION GAP 12 10 - 20 mmol/L [facility] Blood 02/15/2025 5:57 AM EDT 02/15/2025 6:17 AM EDT Ema Olivares PA-C, MS LAB BLOOD ORDERAB LES Final Result [address] [address] * (ABNORMAL) CBC and differential (02/14/2025 6:17 AM EDT) Only the most recent of3 resultswithin the time period is included. [facility] WBC 6.43 4.00 - 11.00 K/uL [facility] RBC 3.75(L) 4.00 - 5.20 M/uL [facility] HGB 10.7(L) 12.0 - 16.0 g/dL [facility] HCT 32.9(L) 36.0 - 46.0 % [facility] PLT 188 150 - 450 K/uL [facility] MCV 87.7 80.0 - 100.0 fL [facility] MCH 28.5 27.0 - 31.0 pg [facility] MCHC 32.5 32.0 - 36.0 g/dL [facility] RDW 14.1 11.5 - 14.5 % [facility] MPV 11.0 8.4 - 12.0 fL [facility] NRBC 0.00 0.00 /100 WBCs [facility] ABSOLUTE NRBC 0.00 0.00 K/uL [facility] DIFF METHOD Auto [facility] NEUTS 59.2 48.0 - 76.0 % [facility] LYMPHS 28.8 18.0 - 41.0 % [facility] MONOS 9.5 4.0 - 11.0 % [facility] EOS 1.7 0.0 - 5.0 % [facility] BASOS 0.3 0.0 - 1.5 % [facility] Granulocytes, immature (%) 0.5 0.0 - 0.9 % [facility] ABSOLUTE NEUTS 3.81 1.92 - 7.60 K/uL [facility] ABSOLUTE LYMPHS 1.85 0.72 - 4.10 K/uL [facility] ABSOLUTE MONOS 0.61 0.16 - 1.10 K/uL [facility] ABSOLUTE EOS 0.11 0.00 - 0.50 K/uL [facility] ABSOLUTE BASOS 0.02 0.00 - 0.15 K/uL [facility] Granulocytes, immature 0.03 0.00 - 0.09 K/uL [facility] Blood 02/14/2025 6:17 AM EDT 02/14/2025 6:55 AM EDT us Ema Olivares PA-C, MS LAB BLOOD ORDERAB LES Final Result Performing Organization Address [facility] Co de Phone Number [address] [address] * (ABNORMAL) Phosphorus (02/14/2025 6:17 AM EDT) Only the most recent of3 resultswithin the time period is included. PHOSPHORUS 2.1(L) 2.7 - 4.5 mg/dL [facility] Blood 02/14/2025 6:17 AM EDT 02/14/2025 6:55 AM EDT us Ema Olivares PA-C, MS LAB BLOOD ORDERAB LES Final Result Performing Organization Address [facility] de Phone Number [address] [address] * Magnesium (02/14/2025 6:17 AM EDT) Only the most recent of5 resultswithin the time period is included. MAGNESIUM 1.9 1.6 - 2.6 mg/dL [facility] Blood 02/14/2025 6:17 AM EDT 02/14/2025 6:55 AM EDT us Ema Olivares PA-C, MS LAB BLOOD ORDERAB LES Final Result Performing Organization Address [facility] Co de Phone Number [address] [address] * Digoxin level (02/14/2025 6:17 AM EDT) DIGOXIN 1.4 0.9 - 2.0 ng/mL [facility] Blood 02/14/2025 6:17 AM EDT 02/14/2025 6:55 AM EDT us Cyndie Lopez DO LAB BLOOD ORDERABLES Final Re sult Performing Organization Address [facility] Co de Phone Number [address] [place] [address] * (ABNORMAL) Urinalysis w/reflex Urine Culture (02/13/2025 6:00 PM EDT) Only the most recent of2 resultswithin the time period is included. COLOR Yellow Yellow [facility] CLARITY Clear [facility] GLUCOSE 2+(A) Negative [facility] BILI Negative Negative [facility] KETONES Negative Negative [facility] SPECIFIC GRAVITY 1.010 1.005 - 1.030 [facility] BLOOD 1+(A) Negative [facility] PH 6.0 5.0 - 8.0 [facility] Protein-UA 1+(A) Negative [facility] NITRITE Negative Negative [facility] Leukocyte esterase, ur Negative Negative [facility] Urine (Urine) 02/13/2025 6:0 0 PM EDT 02/13/2025 7:04 PM EDT Ema Olivares PA-C, MS URINE ORDERABLES Final Result Performing Organization Address [facility]/ZIP Co de Phone Number [address] [address] * (ABNORMAL) Urine Culture (02/13/2025 6:00 PM EDT) Only the most recent of2 resultswithin the time period is included. Special Requests None Reflexed from [id number] 02/13/2025 7:36 PM EDT [facility] Urine Culture 10,000 to 100,000 colony forming units per mL MIXED RAJENDRA (3 OR MORE COLONY TYPES) Culture indicates contamination . Please resubmit if necessary.(A) 02/15/2025 12:00 PM EDT [facility] Urine 02/13/2025 6:00 PM EDT 02/13/2025 7:04 PM EDT us Ema Olivares PA-C, MS MICROBIOLOGY - GE NERAL ORDERABLES Final Result Performing Organization Address City/[facility]/ZIP Co de Phone Number [address] [address] * (ABNORMAL) Urine sediment (02/13/2025 6:00 PM EDT) Only the most recent of2 resultswithin the time period is included. WBC 50-100(A) NONE SEEN /hpf [facility] RBC 0-2(A) NONE SEEN /hpf [facility] URINE EPITHELIAL 11-20(A) NONE SEEN [facility] MUCUS Trace(A) NONE SEEN /hpf [facility] BACTERIA Trace(A) NONE SEEN /hpf [facility] CAST 0-2 [facility] Comment:HYALINE CAST YEAST Trace(A) NONE SEEN /hpf [facility] 02/13/2025 6:00 PM EDT 02/13/2025 7:04 PM EDT us Ema Olivares PA-C, MS URINE ORDERABLES Final Result [address] [address] * CT ABDOMEN/PELVIS WITH CONTRAST (02/13/2025 1:03 PM EDT) Anatomical Region Laterality Modality Abdomen, Pelvis Computed Tomogra phy 02/13/2025 1:11 PM EDT Impressions 02/13/2025 1:46 PM EDT 1. No evidence of acute pulmonary embolism or pulmonary arterial hypertension. 2. Multifocal areas of atelectasis. No consolidation. Stigmata of prior granulomatous infection. 3. Interval decrease in size of a soft tissue lesion within the anterior mediastinum. 4. No acute abdominal or pelvic abnormality is identified. 5. Cholelithiasis without evidence of acute cholecystitis. 6. Renal cortical cysts. 7. No acute findings in the abdomen or pelvis. Narrative 02/13/2025 1:[address] CHEST PULMONARY ANGIOGRAM (ACUTE), CT ABDOMEN/PELVIS WITH CONTRAST Referring clinician's provided indication for this examination in Epic: * Respiratory failure; 74 yo female w/ dyspnea and new afib. 35# weight loss, concern for malignancy. R/o PE TECHNIQUE: * Multidetector-row CT pulmonary angiography was performed after administration of intravenous contrast. 3D angiographic postprocessing techniques were acquired in the form of axial maximum intensity projection images (MIPS). * Multidetector-row CT of the abdomen and pelvis was performed with intravenous contrast using tailored dose modulation techniques. Images were reconstructed in the axial, coronal, and sagittal planes. COMPARISON: PET/CT dated November 23, 2024. CT chest dated September 16, 2024. FINDINGS: Motion limited exam. CTA chest: Pulmonary arteries: There is adequate contrast opacification to the proximal segmental pulmonary arteries, without evidence of central filling defect to suggest pulmonary embolism. There is no eccentric filling defect or web to suggest chronic pulmonary emboli. The pulmonary artery is of normal caliber, measuring 3.0 cm in transverse dimension, and there are no filling defects within the right ventricle, or right atrium. Devices and lines/tubes: Devices: No devices are identified. Lines/tubes: No lines/tubes are present. Mediastinum: The thyroid gland is homogeneous. No nodules. There is no posterior mediastinal mass. There is redemonstration of a soft tissue lesion within the upper anterior mediastinum with coarse calcifications measuring approximately 48 x 58 mm, previously 50 x 56 mm (image 69, series 4). There is stable mild mass effect on the great vessels. No acute esophageal abnormality. The heart is of normal size without pericardial effusion. Three-vessel left-sided aortic arch. No aneurysm. Moderate coronary artery calcifications are present. Lymph Nodes: No enlarged supraclavicular, axillary, mediastinal, or hilar lymph nodes. Lungs: The central airways are patent. Mild diffuse peribronchial thickening. No endotracheal, or endobronchial masses are identified. There are a few areas of scattered mucous plugging. Atelectasis within the dependent portions of both lower lobes. No consolidation. No architectural distortion, or honeycomb changes present. Scattered granulomas are identified. One is noted within the right lower lobe measuring 4 mm (image 234, series 4). No noncalcified nodules are identified. Pleura: No pleural effusion or pneumothorax. Chest Wall: No chest wall mass. Bones: Multilevel degenerative changes, no suspicious lesions. Spinal curvature convexity to the right. CT ABDOMEN AND PELVIS: Liver: Normal size liver with smooth surface contour. No masses. No intrahepatic biliary ductal dilatation. Biliary: Intraluminal calcifications within the gallbladder without wall thickening or adjacent inflammation. No extrahepatic biliary ductal dilatation. Spleen: No splenomegaly or focal splenic lesions. Pancreas: No duct dilatation, mass lesions or adjacent inflammation. Fatty involution of the pancreatic parenchyma. There are few coarse calcifications present within the mid body of the, likely representing prior pancreatitis. Adrenal Glands: No nodules or thickening. Kidneys/Ureters: No calcifications, hydronephrosis, masses or perinephric collections. Multiple renal cysts. This includes a cyst identified within the lower right renal pole measuring 22 x 22 mm No ureteral dilation or focal lesion. Bowel: No mechanical bowel obstruction is present. No acute gastric or small bowel abnormality. Unremarkable appearance of the colon. No wall thickening, focal lesions or acute inflammation. The terminal ileum is normal. The appendix is nonvisualized. Peritoneum/Retroperitoneum: No masses, pneumoperitoneum, or fluid. Lymph Nodes: No lymphadenopathy. Pelvic Organs/Bladder: No mass. Vessels: No abdominal aortic aneurysm. Mild calcifications. Bones/Soft Tissues: No inguinal or abdominal wall hernia. Radiodensities, possibly postsurgical are noted within the abdominal wall (image 355, series 4). No masses or collections. No acute or suspicious osseous lesions. Spinal curvature convexity to the right. Procedure Note Nine, Alexander Mazariegos MD - 02/13/2025 CT CHEST PULMONARY ANGIOGRAM (ACUTE), CT ABDOMEN/PELVIS WITH CONTRAST Referring clinician's provided indication for this examination in Epic: *Respiratory failure; 74 yo female w/ dyspnea and new afib. 35# weightloss, concern for malignancy. R/o PE TECHNIQUE: * Multidetector-row CT pulmonary angiography was performed afteradministration of intravenous contrast. 3D angiographic postprocessingtechniques were acquired in the form of axial maximum intensity projectionimages (MIPS). * Multidetector-row CT of the abdomen and pelvis was performed withintravenous contrast using tailored dose modulation techniques. Imageswere reconstructed in the axial, coronal, and sagittal planes. COMPARISON: PET/CT dated November 23, 2024. CT chest dated September 16, 2024. FINDINGS: Motion limited exam. CTA chest: Pulmonary arteries: There is adequate contrast opacification to theproximal segmental pulmonary arteries, without evidence of central fillingdefect to suggest pulmonary embolism. There is no eccentric fillingdefect or web to suggest chronic pulmonary emboli. The pulmonary arteryis of normal caliber, measuring 3.0 cm in transverse dimension, and thereare no filling defects within the right ventricle, or right atrium. Devices and lines/tubes: Devices: No devices are identified. Lines/tubes: No lines/tubes are present. Mediastinum: The thyroid gland is homogeneous. No nodules. There is no posterior mediastinal mass. There is redemonstration of a softtissue lesion within the upper anterior mediastinum with coarsecalcifications measuring approximately 48 x 58 mm, previously 50 x 56 mm(image 69, series 4). There is stable mild mass effect on the greatvessels. No acute esophageal abnormality. The heart is of normal size without pericardial effusion. Hxyro-mulmgvthcn-dyerc aortic arch. No aneurysm. Moderate coronary arterycalcifications are present. Lymph Nodes: No enlarged supraclavicular, axillary, mediastinal, or hilarlymph nodes. Lungs: The central airways are patent. Mild diffuse peribronchialthickening. No endotracheal, or endobronchial masses are identified. Thereare a few areas of scattered mucous plugging. Atelectasis within thedependent portions of both lower lobes. No consolidation. No architecturaldistortion, or honeycomb changes present. Scattered granulomas areidentified. One is noted within the right lower lobe measuring 4 mm ([id number], series 4). No noncalcified nodules are identified. Pleura: No pleural effusion or pneumothorax. Chest Wall: No chest wall mass. Bones: Multilevel degenerative changes, no suspicious lesions. Spinalcurvature convexity to the right. CT ABDOMEN AND PELVIS: Liver: Normal size liver with smooth surface contour. No masses. Nointrahepatic biliary ductal dilatation. Biliary: Intraluminal calcifications within the gallbladder without wallthickening or adjacent inflammation. No extrahepatic biliary ductaldilatation. Spleen: No splenomegaly or focal splenic lesions. Pancreas: No duct dilatation, mass lesions or adjacent inflammation. Fattyinvolution of the pancreatic parenchyma. There are few coarsecalcifications present within the mid body of the, likely representingprior pancreatitis. Adrenal Glands: No nodules or thickening. Kidneys/Ureters: No calcifications, hydronephrosis, masses or perinephriccollections. Multiple renal cysts. This includes a cyst identified withinthe lower right renal pole measuring 22 x 22 mm No ureteral dilation orfocal lesion. Bowel: No mechanical bowel obstruction is present. No acute gastric orsmall bowel abnormality. Unremarkable appearance of the colon. No wallthickening, focal lesions or acute inflammation. The terminal ileum isnormal. The appendix is nonvisualized. Peritoneum/Retroperitoneum: No masses, pneumoperitoneum, or fluid. Lymph Nodes: No lymphadenopathy. Pelvic Organs/Bladder: No mass. Vessels: No abdominal aortic aneurysm. Mild calcifications. Bones/Soft Tissues: No inguinal or abdominal wall hernia. Radiodensities,possibly postsurgical are noted within the abdominal wall (image 355,series 4). No masses or collections. No acute or suspicious osseouslesions. Spinal curvature convexity to the right. IMPRESSION: 1. No evidence of acute pulmonary embolism or pulmonary arterialhypertension. 2. Multifocal areas of atelectasis. No consolidation. Stigmata of priorgranulomatous infection. 3. Interval decrease in size of a soft tissue lesion within the anteriormediastinum. 4. No acute abdominal or pelvic abnormality is identified. 5. Cholelithiasis without evidence of acute cholecystitis. 6. Renal cortical cysts. 7. No acute findings in the abdomen or pelvis. Ema Olivares PA-C, MS IMG CT ABD/PELVIS Final Result * CT CHEST PULMONARY ANGIOGRAM (ACUTE) (02/13/2025 1:03 PM EDT) Anatomical Region Laterality Modality Chest, Thoracic Vasculature Comp uted Tomography 02/13/2025 1:11 PM EDT Impressions 02/13/2025 1:46 PM EDT 1. No evidence of acute pulmonary embolism or pulmonary arterial hypertension. 2. Multifocal areas of atelectasis. No consolidation. Stigmata of prior granulomatous infection. 3. Interval decrease in size of a soft tissue lesion within the anterior mediastinum. 4. No acute abdominal or pelvic abnormality is identified. 5. Cholelithiasis without evidence of acute cholecystitis. 6. Renal cortical cysts. 7. No acute findings in the abdomen or pelvis. Narrative 02/13/2025 1:[address] CHEST PULMONARY ANGIOGRAM (ACUTE), CT ABDOMEN/PELVIS WITH CONTRAST Referring clinician's provided indication for this examination in Epic: * Respiratory failure; 74 yo female w/ dyspnea and new afib. 35# weight loss, concern for malignancy. R/o PE TECHNIQUE: * Multidetector-row CT pulmonary angiography was performed after administration of intravenous contrast. 3D angiographic postprocessing techniques were acquired in the form of axial maximum intensity projection images (MIPS). * Multidetector-row CT of the abdomen and pelvis was performed with intravenous contrast using tailored dose modulation techniques. Images were reconstructed in the axial, coronal, and sagittal planes. COMPARISON: PET/CT dated November 23, 2024. CT chest dated September 16, 2024. FINDINGS: Motion limited exam. CTA chest: Pulmonary arteries: There is adequate contrast opacification to the proximal segmental pulmonary arteries, without evidence of central filling defect to suggest pulmonary embolism. There is no eccentric filling defect or web to suggest chronic pulmonary emboli. The pulmonary artery is of normal caliber, measuring 3.0 cm in transverse dimension, and there are no filling defects within the right ventricle, or right atrium. Devices and lines/tubes: Devices: No devices are identified. Lines/tubes: No lines/tubes are present. Mediastinum: The thyroid gland is homogeneous. No nodules. There is no posterior mediastinal mass. There is redemonstration of a soft tissue lesion within the upper anterior mediastinum with coarse calcifications measuring approximately 48 x 58 mm, previously 50 x 56 mm (image 69, series 4). There is stable mild mass effect on the great vessels. No acute esophageal abnormality. The heart is of normal size without pericardial effusion. Three-vessel left-sided aortic arch. No aneurysm. Moderate coronary artery calcifications are present. Lymph Nodes: No enlarged supraclavicular, axillary, mediastinal, or hilar lymph nodes. Lungs: The central airways are patent. Mild diffuse peribronchial thickening. No endotracheal, or endobronchial masses are identified. There are a few areas of scattered mucous plugging. Atelectasis within the dependent portions of both lower lobes. No consolidation. No architectural distortion, or honeycomb changes present. Scattered granulomas are identified. One is noted within the right lower lobe measuring 4 mm (image 234, series 4). No noncalcified nodules are identified. Pleura: No pleural effusion or pneumothorax. Chest Wall: No chest wall mass. Bones: Multilevel degenerative changes, no suspicious lesions. Spinal curvature convexity to the right. CT ABDOMEN AND PELVIS: Liver: Normal size liver with smooth surface contour. No masses. No intrahepatic biliary ductal dilatation. Biliary: Intraluminal calcifications within the gallbladder without wall thickening or adjacent inflammation. No extrahepatic biliary ductal dilatation. Spleen: No splenomegaly or focal splenic lesions. Pancreas: No duct dilatation, mass lesions or adjacent inflammation. Fatty involution of the pancreatic parenchyma. There are few coarse calcifications present within the mid body of the, likely representing prior pancreatitis. Adrenal Glands: No nodules or thickening. Kidneys/Ureters: No calcifications, hydronephrosis, masses or perinephric collections. Multiple renal cysts. This includes a cyst identified within the lower right renal pole measuring 22 x 22 mm No ureteral dilation or focal lesion. Bowel: No mechanical bowel obstruction is present. No acute gastric or small bowel abnormality. Unremarkable appearance of the colon. No wall thickening, focal lesions or acute inflammation. The terminal ileum is normal. The appendix is nonvisualized. Peritoneum/Retroperitoneum: No masses, pneumoperitoneum, or fluid. Lymph Nodes: No lymphadenopathy. Pelvic Organs/Bladder: No mass. Vessels: No abdominal aortic aneurysm. Mild calcifications. Bones/Soft Tissues: No inguinal or abdominal wall hernia. Radiodensities, possibly postsurgical are noted within the abdominal wall (image 355, series 4). No masses or collections. No acute or suspicious osseous lesions. Spinal curvature convexity to the right. Procedure Note Nine, Alexander Mazariegos MD - 02/13/2025 CT CHEST PULMONARY ANGIOGRAM (ACUTE), CT ABDOMEN/PELVIS WITH CONTRAST Referring clinician's provided indication for this examination in [facility]: *Respiratory failure; 74 yo female w/ dyspnea and new afib. 35# weightloss, concern for malignancy. R/o PE TECHNIQUE: * Multidetector-row CT pulmonary angiography was performed afteradministration of intravenous contrast. 3D angiographic postprocessingtechniques were acquired in the form of axial maximum intensity projectionimages (MIPS). * Multidetector-row CT of the abdomen and pelvis was performed withintravenous contrast using tailored dose modulation techniques. Imageswere reconstructed in the axial, coronal, and sagittal planes. COMPARISON: PET/CT dated November 23, 2024. CT chest dated September 16, 2024. FINDINGS: Motion limited exam. CTA chest: Pulmonary arteries: There is adequate contrast opacification to theproximal segmental pulmonary arteries, without evidence of central fillingdefect to suggest pulmonary embolism. There is no eccentric fillingdefect or web to suggest chronic pulmonary emboli. The pulmonary arteryis of normal caliber, measuring 3.0 cm in transverse dimension, and thereare no filling defects within the right ventricle, or right atrium. Devices and lines/tubes: Devices: No devices are identified. Lines/tubes: No lines/tubes are present. Mediastinum: The thyroid gland is homogeneous. No nodules. There is no posterior mediastinal mass. There is redemonstration of a softtissue lesion within the upper anterior mediastinum with coarsecalcifications measuring approximately 48 x 58 mm, previously 50 x 56 mm(image 69, series 4). There is stable mild mass effect on the greatvessels. No acute esophageal abnormality. The heart is of normal size without pericardial effusion. Xnrwz-fgxjlvaray-nzsgh aortic arch. No aneurysm. Moderate coronary arterycalcifications are present. Lymph Nodes: No enlarged supraclavicular, axillary, mediastinal, or hilarlymph nodes. Lungs: The central airways are patent. Mild diffuse peribronchialthickening. No endotracheal, or endobronchial masses are identified. Thereare a few areas of scattered mucous plugging. Atelectasis within thedependent portions of both lower lobes. No consolidation. No architecturaldistortion, or honeycomb changes present. Scattered granulomas areidentified. One is noted within the right lower lobe measuring 4 mm ([id number], series 4). No noncalcified nodules are identified. Pleura: No pleural effusion or pneumothorax. Chest Wall: No chest wall mass. Bones: Multilevel degenerative changes, no suspicious lesions. Spinalcurvature convexity to the right. CT ABDOMEN AND PELVIS: Liver: Normal size liver with smooth surface contour. No masses. Nointrahepatic biliary ductal dilatation. Biliary: Intraluminal calcifications within the gallbladder without wallthickening or adjacent inflammation. No extrahepatic biliary ductaldilatation. Spleen: No splenomegaly or focal splenic lesions. Pancreas: No duct dilatation, mass lesions or adjacent inflammation. Fattyinvolution of the pancreatic parenchyma. There are few coarsecalcifications present within the mid body of the, likely representingprior pancreatitis. Adrenal Glands: No nodules or thickening. Kidneys/Ureters: No calcifications, hydronephrosis, masses or perinephriccollections. Multiple renal cysts. This includes a cyst identified withinthe lower right renal pole measuring 22 x 22 mm No ureteral dilation orfocal lesion. Bowel: No mechanical bowel obstruction is present. No acute gastric orsmall bowel abnormality. Unremarkable appearance of the colon. No wallthickening, focal lesions or acute inflammation. The terminal ileum isnormal. The appendix is nonvisualized. Peritoneum/Retroperitoneum: No masses, pneumoperitoneum, or fluid. Lymph Nodes: No lymphadenopathy. Pelvic Organs/Bladder: No mass. Vessels: No abdominal aortic aneurysm. Mild calcifications. Bones/Soft Tissues: No inguinal or abdominal wall hernia. Radiodensities,possibly postsurgical are noted within the abdominal wall (image 355,series 4). No masses or collections. No acute or suspicious osseouslesions. Spinal curvature convexity to the right. IMPRESSION: 1. No evidence of acute pulmonary embolism or pulmonary arterialhypertension. 2. Multifocal areas of atelectasis. No consolidation. Stigmata of priorgranulomatous infection. 3. Interval decrease in size of a soft tissue lesion within the anteriormediastinum. 4. No acute abdominal or pelvic abnormality is identified. 5. Cholelithiasis without evidence of acute cholecystitis. 6. Renal cortical cysts. 7. No acute findings in the abdomen or pelvis. Ema Olivares PA-C, MS IMG CT CHEST F inal Result * COVID Pandemic Respiratory Viral Order (PRO) (02/13/2025 10:19 AM EDT) Only the most recent of2 resultswithin the time period is included. Test Ordered COVID has been ordered [facility] SPECIMEN SOURCE/DESCRIPTION SWAB [facility] SARS-CoV 2 (COVID-19) PCR Negative Negative [facility] Comment: SARS-CoV-2 not detected Negative results do not preclude SARS-CoV-2 infection and should not be used as the sole basis for patient management decisions. Negative results must be combined with clinical observations, patient history, and epidemiological information. This test has been authorized by the FDA under an Emergency Use Authorization (EUA) for use by authorized laboratories. Other (Nasal swab) 02/13/2025 10:19 AM EDT 02/13/2025 11:25 AM EDT Ema Olivares PA-C, MS BODY FLUIDS AND S TOOLS ORDERABLES Final Result Performing Organization Address [facility] Co de Phone Number [address] [address] * (ABNORMAL) TSH with reflex (02/13/2025 4:38 AM EDT) TSH 0.12(L) 0.27 - 4.20 uIU/mL [facility] 02/13/2025 4:38 AM EDT 02/13/2025 4:54 AM EDT Cyndie Lopez DO LAB BLOOD ORDERABLES Final Re sult Performing Organization Address [facility] de Phone Number [address] [address] * (ABNORMAL) Free T4 (02/13/2025 4:38 AM EDT) FREE T4 2.3(H) 0.9 - 1.7 ng/dL [facility] 02/13/2025 4:38 AM EDT 02/13/2025 4:54 AM EDT Cyndie Lopez DO LAB BLOOD ORDERABLES Final Re sult Performing Organization Address [facility] de Phone Number [address] [address] * (ABNORMAL) Troponin (02/12/2025 11:38 PM EDT) Only the most recent of2 resultswithin the time period is included. Troponin-T, HS Gen5 37(H) 0 - 9 ng/L [facility] Blood 02/12/2025 11:3 8 PM EDT 02/12/2025 11:47 PM EDT Jovanni Collins MD LAB BLOOD ORDERABLES Final Result [address] [address] * XR Chest Portable (02/12/2025 10:58 PM EDT) Anatomical Region Laterality Modality Chest Computed Radiogr aphy 02/13/2025 12:3 6 AM EDT Impressions 02/13/2025 12:37 AM EDT No acute abnormality. Narrative 02/13/2025 12:37 AM EDT XR CHEST PORTABLE Referring clinician's provided indication for this examination in [facility]: Shortness of breath COMPARISON: CT CHEST WITH CONTRAST FINDINGS: Devices/Tubes/Lines: None. Lungs: No consolidation. Pleura: No pleural effusion or pneumothorax. Heart/Mediastinum: Aortic atherosclerotic calcifications. Bones/Soft Tissues: Normal. Procedure Note Hansa Kearns MD - 02/13/2025 XR CHEST PORTABLE Referring clinician's provided indication for this examination in [facility]:Shortness of breath COMPARISON: CT CHEST WITH CONTRAST FINDINGS: Devices/Tubes/Lines: None. Lungs: No consolidation. Pleura: No pleural effusion or pneumothorax. Heart/Mediastinum: Aortic atherosclerotic calcifications. Bones/Soft Tissues: Normal. IMPRESSION: No acute abnormality. us Jovanni Collins MD IMG XR CHEST Final Resul t * Blood Culture, Routine (02/12/2025 10:42 PM EDT) Only the most recent of2 resultswithin the time period is included. Special Requests None 02/12/2025 10:30 PM EDT [facility] BLOOD CULTURE NO GROWTH 5 DAYS 02/17/2025 10:59 PM EDT [facility] Blood (Blood) 02/12/2025 10: 42 PM EDT 02/12/2025 10:47 PM EDT us Jovanni Collins MD MICROBIOLOGY - GENERAL ORDE MARIO Final Result Performing Organization Address [facility]/ZIP Co de Phone Number [address] [address] * (ABNORMAL) LFTs (hepatic panel) (02/12/2025 10:41 PM EDT) ALKALINE PHOSPHATASE 53 39 - 117 U/L [facility] TOTAL BILIRUBIN 1.3(H) 0.0 - 1.2 mg/dL [facility] DIRECT BILIRUBIN 0.5(H) 0.0 - 0.2 mg/dL [facility] Bilirubin (Indirect) 0.8 0 - 1.5 mg/dL [facility] AST 14 0 - 37 U/L [facility] ALT 16 0 - 40 U/L [facility] TOTAL PROTEIN 7.0 6.5 - 8.0 g/dL [facility] ALBUMIN 3.5(L) 3.9 - 4.8 g/dL [facility] GLOBULIN 3.5 1 - 4.8 g/dL [facility] A/G Ratio 1.00 1.00 - 4.80 RATIO [facility] Blood 02/12/2025 10:4 1 PM EDT 02/12/2025 10:47 PM EDT us Jovanni Collins MD LAB BLOOD ORDERABLES Final Result [address] [address] * (ABNORMAL) PT-INR (02/12/2025 10:41 PM EDT) PT 27.2(H) 10.2 - 12.9 sec [facility] INR 2.2(H) 0.9 - 1.1 [facility] Comment:Therapeutic range fo r oral Vitamin K antagonists: 2.0-3.5 Blood 02/12/2025 10:4 1 PM EDT 02/12/2025 10:47 PM EDT us Jovanni Collins MD LAB BLOOD ORDERABLES Final Result Performing Organization Address [facility] Co de Phone Number [address] [address] * (ABNORMAL) NT-proBNP (02/12/2025 10:41 PM EDT) NT-PROBNP 3,976(H) 0 - 450 pg/mL [facility] Blood 02/12/2025 10:4 1 PM EDT 02/12/2025 10:47 PM EDT us Jovanni Collins MD LAB BLOOD ORDERABLES Final Result Performing Organization Address [facility] de Phone Number [address] [address] * (ABNORMAL) Lactate (02/12/2025 10:41 PM EDT) LACTATE 2.77(H) 0.50 - 2.20 mmol/L [facility] Blood 02/12/2025 10:4 1 PM EDT 02/12/2025 10:47 PM EDT us Jovanni Collins MD LAB BLOOD ORDERABLES Final Result Performing Organization Address [facility] de Phone Number [address] [address] * (ABNORMAL) Venous blood gas (02/12/2025 10:41 PM EDT) pH, Venous 7.44(H) 7.31 - 7.41 [facility] PCO2, Venous 35.80(L) 41.00 - 51.00 mmHg [facility] PO2, Venous 27.10(L) 35.00 - 40.00 mmHg [facility] HCO3, Venous 24 23 - 28 mmol/L [facility] BASE DEFICIT VENOUS 0.2 0.0 - 2.0 mmol/L [facility] SO2, VENOUS 52.00(L) 60.00 - 80.00 % [facility] FO2HB, VENOUS 51.00(L) 71.00 - 74.00 % [facility] Carboxy Hgb 1.60(H) 0 - 1.50 % [facility] MetHgb % 0.30 0 - 1.50 % [facility] Blood 02/12/2025 10:4 1 PM EDT 02/12/2025 10:47 PM EDT us Jovanni Collins MD LAB BLOOD ORDERABLES Final Result Performing Organization Address [facility] Co de Phone Number [address] [address] * ECG 12-LEAD (02/12/2025 10:28 PM EDT) Only the most recent of4 resultswithin the time period is included. Ventricular Rate EKG/MIN 128 BPM [facility] Atrial Rate 94 BPM [facility] QRS Duration 96 ms [facility] QT Interval 372 ms [facility] QTC Interval 543 ms [facility] R Wave [place] 123 degrees [facility] T Wave [place] -49 degrees [facility] 02/12/2025 10:2 8 PM EDT 02/13/2025 8:50 AM EDT Narrative [facility] - 02/13/2025 8:50 AM EDT Critical Test Result: STEMI Atrial fibrillation with rapid ventricular response Left posterior fascicular block ST elevation consider inferior injury or acute infarct ACUTE AR / STEMI Consider right ventricular involvement in acute inferior infarct Abnormal ECG When compared with ECG of 12-Feb-2025 22:20, No significant change was found Confirmed by Brian Melendez ([id number]) on 02/13/2025 8:50:46 AM us Tesfaye Frye MD ECG ORDERABLES Final Result Performing Organization Address City/[facility]/ZIP Co de Phone Number [email or web address] * (ABNORMAL) Comprehensive metabolic panel (02/11/2025 3:32 PM EDT) Only the most recent of2 resultswithin the time period is included. SODIUM 141 133 - 146 mmol/L [facility] POTASSIUM 4.1 3.3 - 5.1 mmol/L [facility] CHLORIDE 101 96 - 108 mmol/L [facility] CO2 25 21 - 35 mmol/L [facility] BUN 36(H) 6 - 19 mg/dL [facility] CREATININE 1.80(H) 0.5 - 1.5 mg/dL [facility] GLUCOSE 199(H) 70 - 99 mg/dL [facility] ALBUMIN 4.0 3.9 - 4.8 g/dL [facility] TOTAL PROTEIN 7.8 6.5 - 8.0 g/dL [facility] CALCIUM 10.9(H) 8.4 - 10.3 mg/dL [facility] ALKALINE PHOSPHATASE 58 39 - 117 U/L [facility] TOTAL BILIRUBIN 1.3(H) 0.0 - 1.2 mg/dL [facility] AST 20 0 - 37 U/L [facility] ALT 22 0 - 40 U/L [facility] GLOBULIN 3.8 1 - 4.8 g/dL [facility] EGFR 29(L) >59 mL/min/1.7 3m2 [facility] Comment:Estimated glomerular filtration rate calculated using the CKD-EPI refit equation. ANION GAP 19 10 - 20 mmol/L [facility] Blood 02/11/2025 3:32 PM EDT 02/11/2025 3:35 PM EDT Lance Morris DO LAB BLOOD GILDARDO MARTIN Final Result [facility] [address] [place] [address] * (ABNORMAL) Hemoglobin A1c (02/11/2025 3:32 PM EDT) HEMOGLOBIN A1C 7.5(H) 4.3 - 5.8 % [facility] Blood 02/11/2025 3:32 PM EDT 02/11/2025 3:35 PM EDT Lance Bari Morris LAB BLOOD ORDE RABLES Final Result Performing Organization Address [facility] Co de Phone Number [address] [address] * (ABNORMAL) Lipid panel (09/21/2023 11:08 AM EDT) HDL 37 mg/dL [facility] Comment: Interpretation <40 mg/dL: Low HDL cholesterol (major risk factor for CHD) Greater than or equal to 60 mg/dL: High HDL cholesterol ( negative risk factor for CHD) HDL - cholesterol is affected by a number of factors, e.g. smoking, excerise, hormones, sex and age. CHOLESTEROL 135 0 - 240 mg/dL [facility] TRIGLYCERIDES 182(H) 30 - 160 mg/dL [facility] LDL 62 50 - 129 mg/dL [facility] Comment: LDL levels in terms of risk for coronary heart disease: <100 mg/dL: Optimal 100-129 mg/dL: Near or above optimal 130-159 mg/dL: Borderline high 160-189 mg/dL: High >190 mg/dL: Very High CARDIAC RISK RATIO 3.6 3.3 - 4.4 [facility] Blood 09/21/2023 11:0 8 AM EDT 09/21/2023 11:11 AM EDT Maya Khan MD LAB BLOOD ORDERABLES Fatou l Result Performing Organization Address [facility]/ZIP Co de Phone Number [address] [address] * DIABETES EYE EXAM FOR RESULT ENTRY ONLY (03/17/2020) Historical Provider HEALTH MAINTENANCE Edited Result - Final * Hepatitis C antibody, qualitative (09/18/2018 11:03 AM EDT) HCV Negative Negative [facility] Comment: This is a screening test and should be confirmed with molecular testing Blood 09/18/2018 11:0 3 AM EDT 09/18/2018 11:22 AM EDT us Tesfaye Putnam MD LAB BLOOD ORDERABLES Fatou l Result Performing Organization Address [facility] Co de Phone Number [address] [address] * Microalbumin/creatinine ratio, random urine (09/18/2018 11:03 AM EDT) URINE MICROALBUMIN <1.2 0 - 2.3 mg/dL [facility] URINE CREATININE 83 mg/dL [facility] MICROALB/CRE RATIO NOT CALCULATED 0 - 20 mg/g Cre [facility] Comment:due to Microalbumin <1.2 Urine (Urine) 09/18/2018 11: 03 AM EDT 09/18/2018 11:21 AM EDT us Tesfaye Putnam MD URINE ORDERABLES Final Re sult Performing Organization Address [facility] Co de Phone Number [address] [address] from Last 3 Months or Most Recently Relevant to Health Maintenance Additional Health Concerns Infection Onset Date Last Indicated 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 02/13/2025 Insurance [facility] MEDICARE HMO REPLACEMENT MEDICARE HMO REPLACEMENT MEDICARE HMO REPLACEMENT MEDICARE HMO REPLACEMENT MEDICARE HMO REPLACEMENT MEDICARE HMO REPLACEMENT MEDICARE HMO REPLACEMENT MEDICARE HMO REPLACEMENT [employer] [place] MEDIC[employer] HMO REPLACEMENT Advance Directives For more information, please contact: [phone] (9AM - 5PM [facility], Monday-Monday) Documents on File Type Date Recorded Patient End User Consultant Expl anation Healthcare Proxy 02/18/2025 12:52 PM healt hcare proxy Healthcare Proxy 02/17/2025 5:18 PM Healthcare Proxy 02/13/2025 10:34 AM Healt hcare Proxy * Full Code (Latest Code Status on File) Date Activated Date Inactivated Comments 02/13/2025 12:56 AM Question Answer Comments Code Status Confirmed With: Patient Care Teams Finishing Range Feeder Relationship Specialty Start Date End Date Maya Khan MD [address] [place] [address] 7 [place] [address] PCP - General Family Medicine 05/03/21 Nicole Birch FNP [address] [place] [address] Historical LMR Provider 03/01/17 Mesha Drake MD [address] [place] [address] [email or web address] Historical LMR Provider 03/01/17 Tesfaye Putnam MD [address] [place] [address] [address] [place] [address] [email or web address] Historical LMR Provider 03/01/17 Additional Source Comments The information contained in this document represents components of the legal health record. It is not the complete legal health record.[facility]
--- OUTSIDE RECORDS SUMMARY | 2025-02-22 19:55 | XMS_ITS | Encounter Summary ---
Author Organization [facility] Address [address] [place] [address] [place] [address] Phone Care Team Providers Care Academic Services Coordinator Name Role Phone Nicole Birch BEER STILL RUNNER COMPOUNDER Unavailable [phone] Mesha Drake MD Unavailable Angeline HunterN Unavailable [phone] Tesfaye Putnam MD Unavailable [phone] Dickson Martin MD Unavailable [phone] Tesfaye Putnam MD Primary Care Provider Maya Frias MD Primary Care Provider [phone] Mila Quintana OT Unavailable [phone] Encounter Details Date Type Department Care Team (Late st Contact Info) Description 08/07/2018 Ancillary Orders [facility],Outside Imaging [address] [place] [address] System, Provider Not In, [facility] [address] [address] Social History Tobacco Use Types Packs/Day Years Used Date Smoking Tobacco: Former Cigarettes Q uit: 1988 Smokeless Tobacco: Never Alcohol Use Standard Drinks/Week Comments Yes 0 (1 standard drink = 0.6 oz pur e alcohol) very occasional, beer/wine Comments Unknown Sex and Gender Information Value Date Recorded [...] Visit [facility] [address] [place] [address] Donya Matos, LEONORA [address] [place] [address] [email or web address] 03/03/2025 4:00 PM EDT Office Visit [facility] Medicine [address] [place] [address] Maya Frias MD [address] [facility], [address] [place] [address] [email or web address] documented as of this encounter Results * Mammogram Outside (No [...] Noted Time PHQ-2 Depression Total Score: 0 04/09/20 18 12:02 PM EST documented as of this encounter Care Teams Academic Services Coordinator Relationship Specialty Start Date End Date Tesfaye Putnam MD [address] [facility]. [address] [place] [address] [email or web address] PCP - General 03/02/17 05/02/21 Maya Frias MD [address] [facility], [address] [place] [address] [email or web address] PCP - General Family Medicine 05/03/21 Nicole Birch FNP [address] [facility], [address] [place] [address] Historical LMR Provider 03/01/17 Mesha Drake MD [address] [facility], 1st [place] [address] Historical LMR Provider 03/01/17 Angeline Hunter LDN [address] [place] [address] Historical LMR Provider 03/01/17 05/22/21 Tesfaye Putnam MD [address] [place] [address] [address] [place] [address] [email or web address] Historical LMR Provider 03/01/17 Dickson Martin MD [address] [place] [address] Orthopedics & Sports Medicine, [facility] [place] [address] Historical LMR Provider 03/01/17 2 Mila Quintana, OT [address] [place] [address] [email or web address] Transitions Full Stack Software EngineerLecturer Of Portuguese Therapy 02/03/25 02/03/25 documented as of this encounter Additional Source Comments The information contained in this document represents components of the legal health record. It is not the complete legal health record.[facility]
--- OUTSIDE RECORDS SUMMARY | 2025-02-22 19:55 | XMS_ITS | Encounter Summary ---
Author Organization [facility] Address [address] [facility] [address] [place] [address] Phone Care Team Providers Care Ground Hand Name Role Phone Nicole Birch MOLD YARD SUPERVISOR Unavailable Mesha Drake MD Unavailable [phone] Tesfaye Putnam MD Unavailable [phone] Maya Frias MD Primary Care Provider [phone] Encounter Details Date Type Department Care Team (Late st Contact Info) Description 02/13/2025 Procedure Pass [facility], Ct Scan - [facility] [address] [place] [address] Social History Tobacco Use Types Packs/Day Years [...] Info) Description 02/23/2025 Home Care Visit [facility] [address] [place] [id number] Donya Matos RN [address] [place] [address] 03/03/2025 4:00 PM EDT Office Visit [address] [address] Maya Frias MD [address] [place] [address] 7 [place] [address] [email or web address] documented as of this encounter Visit Diagnoses Not on filedocumented in this encounter Additional Health Concerns Infection Onset Date Last Indicated Resolved Time CoV-Risk Comment:Per note documentation 02/12/2025 02/12/2025 2:26 PM EDT 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 02/13/2025 Assessment Noted Time PHQ-2 Depression Total Score: 0 09/02/19 25 8:43 PM EDT documented as of this encounter Care Teams Ground Hand Relationship Specialty Start Date End Date Maya Frias MD [address] [place] [address] [email or web address] PCP - General Family Medicine 05/03/21 Nicole Birch FNP [address] [place] [address] [email or web address] Historical LMR Provider 03/01/17 Mesha Drake MD [address] [place] [address], 1[address] [place] [address] [email or web address] Historical LMR Provider 03/01/17 Tesfaye Putnam MD [address] [place], [place] [address] [place] [address] [email or web address] Historical LMR Provider 03/01/17 documented as of this encounter Additional Source Comments The information contained in this document represents components of the legal health record. It is not the complete legal health record.[facility]
--- OUTSIDE RECORDS SUMMARY | 2025-02-22 19:55 | XMS_ITS | Encounter Summary ---
Author Organization [facility] Address [address] [facility] [address] [place] [address] Phone Care Team Providers Care It Service Delivery Manager Name Role Phone Nicole Birch FIRMWARE SOFTWARE VERIFICATION ENGINEER Unavailable [phone] Mesha Drake MD Unavailable [phone] Tesfaye Putnam MD Unavailable [phone] Maya Frias MD Primary Care Provider [phone] Reason for Visit * Auth/Cert (Routine) Specialty Diagnoses / Procedures Referred By Contac t Referred To Contact Referral ID Status Reason Start Date Expiration Date Visits Re quested Visits Authorized [id number] 1 1 Encounter Details Date Type Department Care Team (Late st Contact Info) Description 02/22/2025 Home Care Visit [facility] [address] [place] [address] Griffin Young, PT [address] [place] [address] [email or web address] CASE COMMUNICATION Social History Tobacco Use Types [...] Visit [facility] [address] [place] [address] Donya Matos, LEONORA [address] [place] [address] 03/03/2025 4:00 PM EDT Office Visit [facility] Medicine [address] [place] [address] Maya Frias MD [address] [facility] 7 [place] [address] [email or web address] documented as of this encounter Visit Diagnoses Not on filedocumented in this encounter Additional Health Concerns Infection Onset Date Last Indicated Resolved Time 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 02/13/2025 Assessment Noted Time PHQ-2 Depression Total Score: 0 09/02/19 25 8:43 PM EDT documented as of this encounter Care Teams It Service Delivery Manager Relationship Specialty Start Date End Date Maya Frias MD [address] [facility] 7 [place] [address] PCP - General Family Medicine 05/03/21 Nicole Birch FNP [address] [facility] 7 [place] [address] Historical LMR Provider 03/01/17 Mesha Drake MD 22 [facility], 1st [place] [address] Historical LMR Provider 03/01/17 Tesfaye Putnam MD [address] [place], [place] [address] [place] [address] [email or web address] Historical LMR Provider 03/01/17 documented as of this encounter Additional Source Comments The information contained in this document represents components of the legal health record. It is not the complete legal health record.[facility]
--- OUTSIDE RECORDS SUMMARY | 2025-02-22 19:55 | XMS_ITS | Encounter Summary ---
Author Organization [facility] Address [address] [place] [address] [place] [address] Phone Care Team Providers Care Biomed Tech Name Role Phone Nicole Birch COST ACCOUNTING ANALYST Unavailable [phone] Mesha Drake MD Unavailable [phone] Angeline HunterN Unavailable [phone] Tesfaye Putnam MD Unavailable [phone] Dickson Martin MD Unavailable [phone] Tesfaye Putnam MD Primary Care Provider Maya Frias MD Primary Care Provider [phone] Mila Quintana OT Unavailable [phone] Encounter Details Date Type Department Care Team (Late st Contact Info) Description 08/07/2018 Ancillary Orders [facility],Outside Imaging 30 [place] [address] System, Provider Not In, PhD Partners [address] [address] Social History Tobacco Use Types Packs/Day Years [...] [facility] [address] [place] [address] Donya Matos, LEONORA [address] [place] [address] [email or web address] 03/03/2025 4:00 PM EDT Office Visit [facility] Medical [email or web address] Medicine 234 [place] [address] Maya Frias MD 234 [facility], [address] [place] [address] [email or web address] documented as of this encounter Results * [...] documented as of this encounter Care Teams Biomed Tech Relationship Specialty Start Date End Date Tesfaye Putnam MD 234 [facility]. [address] [place] [address] [email or web address] PCP - General 03/02/17 05/02/21 Maya Frias MD 234 [facility], [address] [place] [address] [email or web address] PCP - General Family Medicine 05/03/21 Nicole Birch FNP 234 [facility], [address] [place] [address] Historical LMR Provider 03/01/17 Mesha Drake MD 22 [facility], 1st [place] [address] Historical LMR Provider 03/01/17 Angeline Hunter LDN [address] [place] [address] Historical LMR Provider 03/01/17 05/22/21 Tesfaye Putnam MD [address] [place] [address] [address] [place] [address] [email or web address] Historical LMR Provider 03/01/17 Dickson Martin MD [address] [place] [address] Orthopedics & Sports Medicine, [place] [address] Historical LMR Provider 03/01/17 2 Mila Quintana, OT 30 [place] [address] [email or web address] Transitions Customer Services CoordinatorMeat Pickler Therapy 02/03/25 02/03/25 documented as of this encounter Additional Source Comments The information contained in this document represents components of the legal health record. It is not the complete legal health record.[facility]
--- OUTSIDE RECORDS SUMMARY | 2025-02-22 19:55 | XMS_ITS | Encounter Summary ---
Author Organization [facility] Address [address] [place] [address] [place] [address] Phone Care Team Providers Care Lining Maker Name Role Phone Nicole Birch FISHER LOBSTER Unavailable [phone] Mesha Drake MD Unavailable [phone] Angeline HunterN Unavailable [phone] Tesfaye Putnam MD Unavailable [phone] Dickson Martin MD Unavailable [phone] Tesfaye Putnam MD Primary Care Provider Maya Frias MD Primary Care Provider [phone] Mila Quintana OT Unavailable [phone] Encounter Details Date Type Department Care Team (Late st Contact Info) Description 08/07/2018 Ancillary Orders [facility],Outside Imaging 30 [place] [address] System, Provider Not In, PhD Partners [address] [address] Social History Tobacco Use Types Packs/Day Years [...] Visit [facility] [address] [place] [address] Donya Matos, LEONORA 168 [place] [address] [email or web address] 03/03/2025 4:00 PM EDT Office Visit [facility] Medicine [address] [place] [address] Maya Frias MD 234 [facility], [address] [place] [address] [email or web address] documented as of this encounter Results * [...] documented as of this encounter Care Teams Lining Maker Relationship Specialty Start Date End Date Tesfaye Putnam MD 234 [facility]. [address] [place] [address] [email or web address] PCP - General 03/02/17 05/02/21 Maya Frias MD 234 [facility], [address] [place] [address] [email or web address] PCP - General Family Medicine 05/03/21 Nicole Birch FNP 234 [facility], [address] [place] [address] Historical LMR Provider 03/01/17 Mesha Drake MD 22 [facility], 1st [place] [address] Historical LMR Provider 03/01/17 Angeline Hunter LDN [address] [place] [address] Historical LMR Provider 03/01/17 05/22/21 Tesfaye Putnam MD [address] [place] [address] [address] [place] [address] [email or web address] Historical LMR Provider 03/01/17 Dickson Martin MD [address] [place] [address] Orthopedics & Sports Medicine, [facility] [place] [address] Historical LMR Provider 03/01/17 2 Mila Quintana, OT 30 [place] [address] [email or web address] Transitions Nougat Cutter MachineBath Design Sales Consultant Therapy 02/03/25 02/03/25 documented as of this encounter Additional Source Comments The information contained in this document represents components of the legal health record. It is not the complete legal health record.[facility]
--- OUTSIDE RECORDS SUMMARY | 2025-02-22 19:55 | XMS_ITS | Encounter Summary ---
Author Organization [facility] Address [address] [facility] [address] [place] [address] Phone Care Team Providers Care Pipe Line Repairer Name Role Phone Nicole Birch UPHOLSTERER APPRENTICE Unavailable Mesha Drake MD Unavailable [phone] Tesfaye Putnam MD Unavailable Maya Frias MD Primary Care Provider [phone] Encounter Details Date Type Department Care Team (Late st Contact Info) Description 02/18/2025 Home Care Visit [facility] 30 [place] [address] Griffin Young, PT [address] [place] [address] [email or web address] CASE COMMUNICATION Social History Tobacco Use Types [...] Home Care Visit [facility] [place] [address] Donya Matos, LEONORA 168 [place] [address] [email or web address] 03/03/2025 4:00 PM EDT Office Visit [facility] 234 [place] [address] Maya Frias MD 234 [facility], [facility] 7 [place] [address] [email or web address] documented as of this encounter Visit Diagnoses Not on filedocumented in this encounter Additional Health Concerns Infection Onset Date Last Indicated Resolved Time 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 02/13/2025 Assessment Noted Time PHQ-2 Depression Total Score: 0 09/02/19 25 8:43 PM EDT documented as of this encounter Care Teams Pipe Line Repairer Relationship Specialty Start Date End Date Maya Frias MD [address] [place] [address] 7 [place] [address] [email or web address] PCP - General Family Medicine 05/03/21 Nicole Birch FNP [address] [place] [address] 7 [place] [address] [email or web address] Historical LMR Provider 03/01/17 Mesha Drake MD 22 [facility], 1st [place] [address] [email or web address] Historical LMR Provider 03/01/17 Tesfaye Putnam MD [address] [place] [address] [address] [place] [address] [email or web address] Historical LMR Provider 03/01/17 documented as of this encounter Additional Source Comments The information contained in this document represents components of the legal health record. It is not the complete legal health record.[facility]
--- OUTSIDE RECORDS SUMMARY | 2025-02-22 19:55 | XMS_ITS | Encounter Summary ---
Author Organization [facility] Address [address] [facility] [address] [place] [address] Phone Care Team Providers Care Crew Trainer Name Role Phone Nicole Birch SKIDDER LOADER Unavailable [phone] Mesha Drake MD Unavailable [phone] Tesfaye Putnam MD Unavailable [phone] Maya Frias MD Primary Care Provider [phone] Reason for Visit * Reason Onset Date Comments Follow-up 02/22/2025 After Hours Call Encounter Details Date Type Department Care Team (Late st Contact Info) Description 02/22/2025 Telephone [facility] 2 [facility] [address] [place] [address] Pooja Claros RN [address] [place] [address] [email or web address] Follow-up (After Hours Call ) Social History Tobacco Use Types Packs/Day Years [...] as of this encounter Progress Notes * Pooja Claros RN - 02/22/2025 1:30 PM EDT After Hours Call Note 02/22/2025 1:38 PM Caller: Obie Chief complaint: verbal order HPI: Obie from [facility] calling to see if she can get a verbal nursing order and healthcare social worker order to go out an evaluate patient. Obie states that PT went out today to do the admission and states that the patient has been non compliant with her medications and does not have familymember to help. Plan: Advised Obie that she has the verbal order for nursing evaluation and healthcare social worker for 02/23/25 from [facility] ZARCO AHCP lead solar panel installation supervisor. Medications prescribed: none Disposition: Other documented in this encounter Plan of Treatment Upcoming Encounters Date Type Department Care Team (Late st Contact Info) Description 02/23/2025 Home Care Visit [facility] 30 [place] [address] Donya Matos, LEONORA 168 [place] [address] 03/03/2025 4:00 PM EDT Office Visit [address] [address] Maya Frias MD 234 [facility] 7 [place] [address] documented as of this encounter Visit Diagnoses Not on filedocumented in this encounter Additional Health Concerns Infection Onset Date Last Indicated Resolved Time 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 02/13/2025 Assessment Noted Time PHQ-2 Depression Total Score: 0 09/02/19 25 8:43 PM EDT documented as of this encounter Care Teams Crew Trainer Relationship Specialty Start Date End Date Maya Frias MD 234 [facility] 7 [place] [address] PCP - General Family Medicine 05/03/21 Nicole Birch FNP 234 [facility], [address] [place] [address] [email or web address] Historical LMR Provider 03/01/17 Mesha Drake MD [address] [place] [address], 1st [place] [address] [email or web address] Historical LMR Provider 03/01/17 Tesfaye Putnam MD [address] [place] [address] [address] [place] [address] [email or web address] Historical LMR Provider 03/01/17 documented as of this encounter Additional Source Comments The information contained in this document represents components of the legal health record. It is not the complete legal health record.[facility]
--- OUTSIDE RECORDS SUMMARY | 2025-02-22 19:55 | XMS_ITS | Encounter Summary ---
Author Organization [facility] Address [address] [place] [address] [place] [address] Phone Care Team Providers Care Patient Account Representative Name Role Phone Nicole Birch HULLER OPERATOR Unavailable [phone] Mesha Drake MD Unavailable [phone] Angeline HunterN Unavailable [phone] Tesfaye Putnam MD Unavailable [phone] Dickson Martin MD Unavailable [phone] Tesfaye Putnam MD Primary Care Provider Maya Frias MD Primary Care Provider [phone] Mila Quintana OT Unavailable [phone] Encounter Details Date Type Department Care Team (Late st Contact Info) Description 08/07/2018 Ancillary Orders [facility],Outside Imaging 30 [place] [address] System, Provider Not In, PhD Partners [address] [address] Social History Tobacco Use Types Packs/Day Years [...] Visit [facility] [address] [place] [address] Donay Matos, LEONORA 168 [place] [address] [email or web address] 03/03/2025 4:00 PM EDT Office Visit [facility] Medical [facility] Medicine [address] [place] [address] Maya Frias MD 234 [facility], [address] [place] [address] [email or web address] documented as of this encounter Results * [...] documented as of this encounter Care Teams Patient Account Representative Relationship Specialty Start Date End Date Tesfaye Putnam MD 234 [facility]. [address] [place] [address] [email or web address] PCP - General 03/02/17 05/02/21 Maya Frias MD 234 [facility], [address] [place] [address] [email or web address] PCP - General Family Medicine 05/03/21 Nicole Birch FNP 234 [facility], [address] [place] [address] Historical LMR Provider 03/01/17 Mesha Drake MD 22 [facility], 1st [place] [address] Historical LMR Provider 03/01/17 Angeline Hunter LDN [address] [place] [address] Historical LMR Provider 03/01/17 05/22/21 Tesfaye Putnam MD [address] [place] [address] [address] [place] [address] [email or web address] Historical LMR Provider 03/01/17 Dickson Martin MD [address] [place] [address] Orthopedics & Sports Medicine, [place] [address] Historical LMR Provider 03/01/17 2 Mila Quintana, OT 30 [place] [address] [email or web address] Transitions Bean Picker Machine OperatorSlice Plug Cutter Operator Therapy 02/03/25 02/03/25 documented as of this encounter Additional Source Comments The information contained in this document represents components of the legal health record. It is not the complete legal health record.[facility]
--- OUTSIDE RECORDS SUMMARY | 2025-02-22 19:55 | XMS_ITS | Encounter Summary ---
Author Organization [facility] Address [address] [facility] [address] [place] [address] Phone Care Team Providers Care Customer Advocacy Manager Name Role Phone Nicole Birch PRODUCTION CREW SUPERVISOR Unavailable [phone] Mesha Drake MD Unavailable [phone] Tesfaye Putnam MD Unavailable Maya Frias MD Primary Care Provider [phone] Encounter Details Date Type Department Care Team (Late st Contact Info) Description 02/22/2025 Plan of Care Documentation [facility] 30 [place] [address] Social History Tobacco Use Types Packs/Day Years [...] you interested in more education? Not on anegla e 09/09/2022 Are you concerned about learning? 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 7 [place] [address] [email or web address] Historical LMR Provider 03/01/17 Mesha Drake MD 22 [facility], 1st [place] [address] Historical LMR Provider 03/01/17 Tesfaye Putnam MD [address] [place] [address] [address] [place] [address] [email or web address] Historical LMR Provider 03/01/17 documented as of this encounter Additional Source Comments The information contained in this document represents components of the legal health record. It is not the complete legal health record.[facility]
--- OUTSIDE RECORDS SUMMARY | 2025-02-22 19:55 | XMS_ITS | Encounter Summary ---
Author Organization [facility] Address [address] [place] [address] [place] [address] Phone Care Team Providers Care Division Roadmaster Name Role Phone Nicole Birch MEN'S GOLF COACH Unavailable [phone] Mesha Drake MD Unavailable [phone] Angeline HunterN Unavailable [phone] Tesfaye Putnam MD Unavailable [phone] Dickson Martin MD Unavailable [phone] Tesfaye Putnam MD Primary Care Provider [phone] Maya Frias MD Primary Care Provider [phone] Mila Quintana OT Unavailable [phone] Encounter Details Date Type Department Care Team (Late st Contact Info) Description 08/07/2018 Ancillary Orders [facility],Outside Imaging 30 [place] [address] System, Provider Not In, PhD Partners [address] [address] Social History Tobacco Use Types Packs/Day Years [...] Visit [facility] 30 [place] [address] Donya Matos, LEONORA 168 [place] [address] [email or web address] 03/03/2025 4:00 PM EDT Office Visit [facility] Medical [facility] Medicine 234 [place] [address] Maya Frias MD 234 [facility], [address] [place] [address] [email or web address] documented as of this encounter Results * [...] documented as of this encounter Care Teams Division Roadmaster Relationship Specialty Start Date End Date Tesfaye Putnam MD 234 [facility]. [address] [place] [address] [email or web address] PCP - General 03/02/17 05/02/21 Maya Frias MD 234 [facility], [address] [place] [address] [email or web address] PCP - General Family Medicine 05/03/21 Nicole Birch FNP 234 [facility], [address] [place] [address] Historical LMR Provider 03/01/17 Mesha Drake MD 22 [facility], 1st [place] [address] Historical LMR Provider 03/01/17 Angeline Hunter LDN [address] [place] [address] Historical LMR Provider 03/01/17 05/22/21 Tesfaye Putnam MD [address] [place] [address] [address] [place] [address] [email or web address] Historical LMR Provider 03/01/17 Dickson Martin MD [address] [place] [address] Orthopedics & Sports Medicine, [facility] [place] [address] Historical LMR Provider 03/01/17 2 Mila Quintana, OT 30 [place] [address] [email or web address] Transitions Property Damage Claims AdjustorMining Detail Draftsperson Therapy 02/03/25 02/03/25 documented as of this encounter Additional Source Comments The information contained in this document represents components of the legal health record. It is not the complete legal health record.[facility]
[2025-02-22 20:04] VITALS: BP 146/58; PULSE 91; RESP 12; TEMP 36.4; O2SAT 98
[2025-02-22] MEDS: Lidocaine HCl 1 % MPF 5 ML VIAL SUBCUT (20:51)
[2025-02-22] MEDS: Diphth,Pertus(ACell),Tet Adult 0.5 ML SYRINGE IM (21:29)
[2025-02-22 21:44] VITALS: BP 146/58; PULSE 91; RESP 12; TEMP 36.4; O2SAT 98
--- NOTE | 2025-02-22 23:00 | PC.NURSE ---
route supervisor rn attempting to book lyft for pt at this time
== END 2025-02-22 23:23 | disposition home or self-care (01) ==
PROVIDERS: Emergency Provider Emergency Medicine; PCP Family Medicine
DX: S01.81XA Laceration without foreign body of other part of head, initial encounter (principal); R51.9 Headache, unspecified; M54.2 Cervicalgia; X58.XXXA Exposure to other specified factors, initial encounter; Y93.9 Activity, unspecified; Y92.9 Unspecified place or not applicable; Y99.8 Other external cause status; Z23 Encounter for immunization
CPT/HCPCS: 12011; 70450; 72125; 90471; 90715; 99284; J2003

== ENCOUNTER → 2025-02-22 19:39 | Outpatient (BNV) | payer MEDICARE, SELFPAY | PROVIDERS: PCP Family Medicine; Visit Provider Student in an Organized Health Care Education/Training Program | DX: M54.2 Cervicalgia (principal); S09.90XA Unspecified injury of head, initial encounter; W01.0XXA Fall on same level from slipping, tripping and stumbling without subsequent striking against object, initial encounter | CPT/HCPCS: 70450; 72125 ==